=== PATIENT | male | born 1965 | race Caucasian/White ===

== ENCOUNTER 2020-05-06 03:26 | Inpatient (IN) | payer MEDICAID ==
[2020-05-06] MEDS ORDERED: LORAZEPAM INJ 2 MG/1 ML VIAL IV ONE (03:59)
--- NOTE | 2020-05-06 04:01 | ER Document Report ---
ED Dizziness/Weakness - General Chief Complaint: Altered Mental Status Stated Complaint: ALTERED MENTAL STATUS Time Seen by Provider: 05/06/20 03:55 Primary Care Provider: CLEM ALMEIDA MD [Primary Care Provider] - Follow up as needed Mode of Arrival: Medic Information source: Emergency Med Personnel, [facility] Records Notes: Patient is a 54-year-old male who is brought into the emergency room by EMS from [facility]. It was reported that patient had altered mental status. It was reported that patient became verbally abusive and somewhat physically abusive to the staff. The in-house physician was called they gave trazodone 25 mg and called EMS to bring him to the emergency room. According to EMS the trazodone seem to work for short period of time but prior to arrival patient started becoming more combative again. Patient has a past significant history for alcoholic cirrhosis with ascites, chronic anemia, type 2 diabetes mellitus, hypo-magnesium, chronic pain. Acute renal failure. Congestive heart failure and pulmonary hypertension. He also has a history of chronic atrial fibrillation. Patient is unable to give any history himself secondary to his aggression and altered mental status. It is reported by EMS that patient normal demeanor is awake alert and oriented and helping people. It is also been reported that he is on a liver transplant list. TRAVEL OUTSIDE OF THE [place] IN LAST 30 DAYS: No - HPI Patient complains to provider of: Altered mental status Onset: This morning Onset/Duration: Sudden, Gradual Quality of pain: Achy Severity: Severe Pain Level: 4 Associated symptoms: Confused. denies: Diarrhea, Dizzy, Almost fainted, Vomiting Baseline gait: Walks w/o assistance - Related Data Allergies/Adverse Reactions: No Known Allergies Allergy (Verified 05/06/20 07:14) Past Medical History - General Information source: Patient - Social History Smoking Status: Current Every Day Smoker Cigarette use (# per day): Yes Chew tobacco use (# tins/day): No Smoking Education Provided: No Frequency of alcohol use: None Drug Abuse: None Lives with: Intermediate Family History: Reviewed & Not Pertinent - Past Medical History Cardiac Medical History: Reports: Hx Hypercholesterolemia, Hx Hypertension Endocrine Medical History: Reports: Hx Diabetes Mellitus Type 2 GI Medical History: Reports: Hx Gastroesophageal Reflux Disease - Immunizations Immunizations up to date: Yes Hx Diphtheria, Pertussis, Tetanus Vaccination: Yes Review of Systems - Review of Systems Constitutional: Malaise, Weakness EENT: No symptoms reported Cardiovascular: No symptoms reported Respiratory: No symptoms reported Gastrointestinal: No symptoms reported Genitourinary: No symptoms reported Male Genitourinary: No symptoms reported Musculoskeletal: No symptoms reported Skin: No symptoms reported Hematologic/Lymphatic: No symptoms reported Neurological/Psychological: See HPI, Confusion, Anxiety, Hallucinations, W eakness -: Yes All other systems reviewed and negative Physical Exam - Vital signs Vitals: Resp 16 05/06/20 03:35 Interpretation: Other - Patient's vital signs did not crossover yet his heart rate on arrival was 91 respiratory rate of 16-18 saturation was 100% on room air and his blood pressure 161/97. - Notes Notes: PHYSICAL EXAMINATION: GENERAL: Patient is a morbidly obese 54-year-old male who is in moderate amount of distress and very aggressive during physical examination. Patient had to be placed in soft restraints in order to protect the staff. Patient does not respond right now currently to verbal stimulation or commands. He is apparently hallucinating and talking out of the top of his head. HEAD: Atraumatic, normocephalic. EYES: Pupils equal round and reactive to light, extraocular movements intact, sc cheryl anicteric, conjunctiva are normal. ENT: Nares patent, oropharynx clear without exudates. Moist mucous membranes. NECK: Normal range of motion, supple without lymphadenopathy LUNGS: Breath sounds clear to auscultation bilaterally and equal. No wheezes rales or rhonchi. HEART: Regular rate and rhythm without murmurs ABDOMEN: Examination of patient's abdomen shows it to be moderately distended with ascites noted. He has slight discoloration on the umbilicus which is chronic in nature. Bowel sounds are present all 4 quads. Musculoskeletal: Normal range of motion, no pitting or edema. No cyanosis. NEUROLOGICAL: Currently patient is obtunded unable to answer questions and is aggressive. PSYCH: Normal mood, normal affect. Course - Vital Signs Vital signs: Temp Pulse Resp BP Pulse Ox 97.5 F 80 12 126/74 H 100 05/06/20 03:44 05/06/20 04:39 05/06/20 07:01 05/06/20 07:00 05/06/20 07:01 - Laboratory Result Diagrams: 05/06/20 03:20 05/06/20 03:20 Laboratory results interpreted by me: 05/06/20 05/06/20 05/06/20 03:20 03:20 03:20 RBC 2.64 L Hgb 8.4 L Hct 25.4 L RDW 17.5 H Eos % (Auto) 6.9 H Potassium 5.4 H BUN 35 H Creatinine 1.36 H Est GFR (MDRD) Non-Af 55 L Glucose 128 H Direct Bilirubin 0.5 H Ammonia Creatine Kinase 45 L NT-Pro-B Natriuret Pep 2370 H Albumin 3.3 L Urine Ascorbic Acid 05/06/20 05/06/20 04:13 05:13 RBC Hgb Hct RDW Eos % (Auto) Potassium BUN Creatinine Est GFR (MDRD) Non-Af Glucose Direct Bilirubin Ammonia 59.2 H Creatine Kinase NT-Pro-B Natriuret Pep Albumin Urine Ascorbic Acid 20 H Discharge - Discharge Clinical Impression: Encephalopathy acute Altered mental status Qualifiers: Altered mental status type: unspecified Qualified Code(s): R41.82 - Altered mental status, unspecified Disposition: ADMITTED INPATIENT Admitting Provider: Sofia (Hospitalist) Unit Admitted: Telemetry Referrals: CLEM ALMEIDA MD [Primary Care Provider] - Follow up as needed
[2020-05-06 04:36] LABS: ABSOLUTE EOSINOPHILS # (AUTO) 0.3 10^3/uL (0.0-0.6); ABSOLUTE LYMPHOCYTES (AUTO) 1.2 10^3/uL (0.5-4.7); ABSOLUTE MONOCYTES (AUTO) 0.5 10^3/uL (0.1-1.4); ABSOLUTE NEUT (AUTO) 2.5 10^3/uL (1.7-8.2); EOSINOPHILS % (AUTO) 6.9 % (0-6); HEMATOCRIT 25.4 % (37.9-51.0); HEMOGLOBIN 8.4 g/dL (13.5-17.0); MEAN CORPUSCULAR HEMOGLOBIN 31.9 pg (27.0-33.4); MEAN CORPUSCULAR HGB CONC 33.2 g/dL (32.0-36.0); MEAN CORPUSCULAR VOLUME 96 fl (80-97); MONOCYTES % (AUTO) 11.1 % (3-13); PLATELET COUNT 175 10^3/uL (150-450); RED BLOOD COUNT 2.64 10^6/uL (4.35-5.55); RED CELL DISTRIBUTION WIDTH 17.5 % (11.5-14.0); TOTAL CELLS COUNTED % (AUTO) 100 %; WHITE BLOOD COUNT 4.6 10^3/uL (4.0-10.5)
[2020-05-06 04:38] LABS: ALBUMIN 3.3 g/dL (3.5-5.0); ALKALINE PHOSPHATASE 109 U/L (38-126); ANION GAP 8 (5-19); ASPARTATE AMINO TRANSFERASE 32 U/L (17-59); BILIRUBIN,DIRECT 0.5 mg/dL (0.0-0.4); BLOOD UREA NITROGEN 35 mg/dL (7-20); CALCIUM 9.5 mg/dL (8.4-10.2); CARBON DIOXIDE 25 mmol/L (22-30); CHLORIDE 105 mmol/L (98-107); CREATINE KINASE 45 U/L (55-170); GLUCOSE 128 mg/dL (75-110); POTASSIUM 5.4 mmol/L (3.6-5.0); TOTAL PROTEIN 7.5 g/dL (6.3-8.2)
[2020-05-06 04:50] LABS: NT PRO BNP 2370 pg/mL (<125)
[2020-05-06 04:53] LABS: TROPONIN I < 0.012 ng/mL
[2020-05-06 05:31] LABS: APPEARANCE,URINE CLEAR; BILIRUBIN,URINE NEGATIVE (NEGATIVE); COLOR,URINE YELLOW; GLUCOSE, URINE NEGATIVE (NEGATIVE); KETONES,URINE NEGATIVE (NEGATIVE); LEUKOCYTE ESTERASE,URINE NEGATIVE (NEGATIVE); NITRITE,URINE NEGATIVE (NEGATIVE); PROTEIN,URINE NEGATIVE (NEGATIVE); URINE SPECIFIC GRAVITY 1.009; UROBILINOGEN,URINE NEGATIVE mg/dL (<2.0)
--- NOTE | 2020-05-06 06:42 | RADIOLOGY REPORT (SQ) ---
EXAM DESCRIPTION: CT HEAD WITHOUT IV CONTRAST COMPLETED DATE/TME: 05/06/2020 04:03 CLINICAL HISTORY: Altered mental status COMPARISON: None available TECHNIQUE: Axial CT of the head obtained from the skull apex to the skull base without contrast. FINDINGS: No acute intracranial hemorrhage identified. No mass, mass effect, shift of the midline, abnormal extra-axial fluid collection or CT evidence of acute ischemic change identified. The ventricular system and sulcal spaces are mildly enlarged compatible with mild cerebral atrophy. Scattered areas of hypodensity throughout the supratentorial white matter are nonspecific and may be related to chronic small vessel ischemic change. Coastal thickening of the left maxillary sinus. Mastoid air cells are well aerated. No skull fracture identified. Visualized orbits and globes are unremarkable. Atherosclerotic calcification of the intracranial internal carotid arteries. IMPRESSION: 1. No acute intracranial abnormality by CT criteria. This exam was performed according to our departmental dose-optimization program, which includes automated exposure control, adjustment of the mA and/or kV according to patient size and/or use of iterative reconstruction technique.
[2020-05-06] MEDS ORDERED: MAG HYDROX/AL HYDROX/SIMETH SUSP 30 ML UDCUP PO PRN (08:44)
[2020-05-06] MEDS ORDERED: PROMETHAZINE HCL INJ 25 MG/1 ML VIAL IV PRN (08:44)
[2020-05-06] MEDS ORDERED: OXYCODONE HCL IR 5 MG TABLET PO PRN (09:05)
[2020-05-06] MEDS ORDERED: DEXTROSE 50%-WATER 25 GM/50 ML DISP.SYRIN IV PRN ×2 (09:11)
[2020-05-06] MEDS ORDERED: GLUCAGON,HUMAN RECOMB 1 MG INJ IM PRN (09:11)
[2020-05-06] MEDS ORDERED: DEXTROSE 40% GEL 15 GM TUBE PO PRN ×2 (09:11)
--- NOTE | 2020-05-06 09:16 | PDOC H&P ---
<CHATA BAH Dwain - Last Filed: 05/07/20 07:22> History of Present Illness Admission Date/PCP: 05/06/20 08:06 CLEM ALMEIDA MD Past Medical History Cardiac Medical History: Reports: Other Renal/ Medical History: Reports: Other GI Medical History: Reports: Cirrhosis, Other Past Surgical History Past Surgical History: Reports: Other Social History Smoking Status: Former Smoker Electronic Cigarette use?: No Frequency of Alcohol Use: None Hx Recreational Drug Use: No Hx Prescription Drug Abuse: No - Advance Directive Resuscitation Status: Full Code Medication/Allergy Home Medications: Allopurinol [Zyloprim 300 mg Tablet] 300 mg PO QAM 05/06/20 Duloxetine HCl [Cymbalta 30 mg Capsule.dr] 30 mg PO QAM 05/06/20 Fluticasone Propionate [Flonase Nasal [place] 50 Mcg/[place] 16 gm] 1 spray NASL QAM 05/06/20 Furosemide [Lasix 20 mg Tablet] 20 mg PO QAM 05/06/20 Gabapentin [Neurontin 400 mg Capsule] 400 mg PO Q12 05/06/20 Lactulose [Cephulac Syrup 20 gm/30 ml Udcup] 20 gm PO TID 05/06/20 Magnesium Oxide [Mag-Ox 400 mg Tablet] 400 mg PO QAM 05/06/20 Melatonin 10 mg PO QHS 05/06/20 Metoprolol Tartrate [Lopressor 50 mg Tablet] 50 mg PO Q12 05/06/20 Mirtazapine [Remeron] 7.5 mg PO QHS 05/06/20 Multivit,Tx with Iron,Minerals [Thera-M] 1 tab PO QAM 05/06/20 Nystatin/Dexameth/Diphen [Magic Mouthwash] 5 ml PO Q6HP PRN 05/06/20 Omeprazole 20 mg PO Q6AM 05/06/20 Oxycodone HCl [Oxy-Ir 5 mg Tablet] 10 mg PO Q6HP PRN 05/06/20 Rivaroxaban [Xarelto] 20 mg PO QPM 05/06/20 Spironolactone [Aldactone 25 mg Tablet] 25 mg PO QAM 05/06/20 Allergies/Adverse Reactions: No Known Allergies Allergy (Verified 05/06/20 07:14) Physical Exam Vital Signs: Temp Pulse Resp BP Pulse Ox 98.2 F 86 18 124/85 99 05/06/20 07:27 05/06/20 07:30 05/06/20 09:01 05/06/20 09:00 05/06/20 09:01 Intake & Output 05/05/20 05/06/20 05/07/20 06:59 06:59 06:59 Weight 84.8 kg Ear exam: PRESENT: normal external ear exam. ABSENT: bleeding, drainage Neck exam: PRESENT: tracheostomy Gentrourinary exam: ABSENT: indwelling catheter Extremities exam: PRESENT: pedal edema, +1 edema Results Laboratory Results: 05/06/20 03:20 05/06/20 03:20 05/06/20 05/06/20 05/06/20 03:20 03:20 04:13 WBC 4.6 RBC 2.64 L Hgb 8.4 L Hct 25.4 L MCV 96 MCH 31.9 MCHC 33.2 RDW 17.5 H Plt Count 175 Seg Neutrophils % 54.0 Sodium 138.1 Potassium 5.4 H Chloride 105 Carbon Dioxide 25 Anion Gap 8 BUN 35 H Creatinine 1.36 H Est GFR ( Amer) > 60 Glucose 128 H Calcium 9.5 Total Bilirubin 1.0 AST 32 Alkaline Phosphatase 109 Ammonia 59.2 H Total Protein 7.5 Albumin 3.3 L Urine Color Urine Appearance Urine pH Ur Specific [place] Urine Protein Urine Glucose (UA) Urine Ketones Urine Blood Urine Nitrite Ur Leukocyte Esterase Urine WBC (Auto) Urine RBC (Auto) 05/06/20 05:13 WBC RBC Hgb Hct MCV MCH MCHC RDW Plt Count Seg Neutrophils % Sodium Potassium Chloride Carbon Dioxide Anion Gap BUN Creatinine Est GFR ( Amer) Glucose Calcium Total Bilirubin AST Alkaline Phosphatase Ammonia Total Protein Albumin Urine Color YELLOW Urine Appearance CLEAR Urine pH 8.0 Ur Specific [place] 1.009 Urine Protein NEGATIVE Urine Glucose (UA) NEGATIVE Urine Ketones NEGATIVE Urine Blood NEGATIVE Urine Nitrite NEGATIVE Ur Leukocyte Esterase NEGATIVE Urine WBC (Auto) 1 Urine RBC (Auto) 1 05/06/20 05/06/20 03:20 03:20 Creatine Kinase 45 L Troponin I < 0.012 NT-Pro-B Natriuret Pep 2370 H Impressions: Head CT 05/06/20 04:03 IMPRESSION: 1. No acute intracranial abnormality by CT criteria. This exam was performed according to our departmental dose-optimization program, which includes automated exposure control, adjustment of the mA and/or kV according to patient size and/or use of iterative reconstruction technique. Assessment and Plan - Diagnosis (1) Acute hepatic encephalopathy Is this a current diagnosis for this admission?: Yes (2) Alcoholic cirrhosis of liver Qualifiers: Ascites presence: without ascites Qualified Code(s): K70.30 - Alcoholic cirrhosis of liver without ascites Is this a current diagnosis for this admission?: Yes (3) Chronic renal failure, stage 3 (moderate) Is this a current diagnosis for this admission?: Yes (4) Hyperkalemia Is this a current diagnosis for this admission?: Yes (5) Anemia, normocytic normochromic Is this a current diagnosis for this admission?: Yes (6) Hyperglycemia Is this a current diagnosis for this admission?: Yes <LAZARO ANTONIO - Last Filed: 05/07/20 08:06> History of Present Illness Admission Date/PCP: 05/06/20 08:06 CLEM ALMEIDA MD Patient complains of: AMS History of Present Illness: ANURAG MASON is a 54 year old male with past medical history of alcoholic cirrhosis with ascites on transplant list, chronic anemia, type 2 diabetes mellitus, hypo-magnesium, chronic pain, acute renal failure, congestive heart failure, pulmonary hypertension, and chronic A-fib. Patient brought into the ED by EMS for altered mental status and combative behavior. Treated with trazadone 25mg prior to arrival with intermittent improvement. Patient continues to express altered mental status and is unable to provide history. Patient's son called into ED and reports previous history of similar symptoms secondary to elevated ammonia levels. Patient is a resident of [facility]. Patient's medical records were obtained and reviewed. Labs from 04/08/2020 noted Ammonia level of 51.3 kg, his lactulose was increased to 30 mL p.o. 3 times daily at that time. Will order ammonia level today for comparison. Labs in the ED show BUN 35/creatinine 1.49, increased since labs drawn 04/08/2020. He is hyperkalemic. UA negative. CT of the head obtained in the ED showed no acute intracranial hemorrhage, no mass, mass-effect or shift of midline, abnormal extra-axial fluid collection or CT evidence of acute ischemic change. Past Medical History Cardiac Medical History: Reports: Atrial Fibrillation, Congestive Heart Failure, Hyperlipidema, Hypertension, Other - Pulmonary hypertension Neurological Medical History: Reports: Other - Ataxia Endocrine Medical History: Reports: Diabetes Mellitus Type 2 Renal/ Medical History: Reports: Other - Acute renal failure Hyponatremia GI Medical History: Reports: Gastroesophageal Reflux Disease, Other - Hyperbilirubinemia Psychiatric Medical History: Reports: Alcohol Dependency, Tobacco Dependency Hematology: Reports: Anemia Past Surgical History Past Surgical History: Reports: Other - Paracentesis Left toe amputation Social History Information Source: Transfer Record Lives with: [place] Smoking Status: Former Smoker Electronic Cigarette use?: No Frequency of Alcohol Use: None Hx Recreational Drug Use: No Hx Prescription Drug Abuse: No Family History Family History: Other - Unable to obtain due to patient's current mental status Parental Family History Reviewed: No Children Family History Reviewed: No Sibling(s) Family History Reviewed.: No Review of Systems ROS unobtainable: Due to mental status Physical Exam Vital Signs: Temp Pulse Resp BP Pulse Ox 98.2 F 86 12 110/70 100 05/06/20 07:27 05/06/20 07:30 05/06/20 08:01 05/06/20 08:00 05/06/20 08:01 Intake & Output 05/05/20 05/06/20 05/07/20 06:59 06:59 06:59 Weight 84.8 kg Exam: Patient is a frail, chronically ill-appearing male who is in moderate amount of distress. Patient does not respond correctly to commands. Patient is lying in bed with soft wrist restraints. Head exam: PRESENT: atraumatic, normocephalic Eye exam: PRESENT: EOMI, PERRLA. ABSENT: scleral icterus Ear exam: PRESENT: normal external ear exam. ABSENT: bleeding, drainage Mouth exam: PRESENT: moist, neck supple, tongue midline Neck exam: PRESENT: tracheostomy. ABSENT: JVD, lymphadenopathy Respiratory exam: PRESENT: clear to auscultation marcia, symmetrical, unlabored. ABSENT: rales, rhonchi, tachypnea, wheezes Cardiovascular exam: PRESENT: RRR, +S1, +S2. ABSENT: diastolic murmur, systolic murmur, tachycardia GI/Abdominal exam: PRESENT: soft. ABSENT: distended, tenderness Rectal exam: PRESENT: deferred Gentrourinary exam: ABSENT: indwelling catheter Extremities exam: PRESENT: pedal edema, +1 edema Neurological exam: PRESENT: awake. ABSENT: alert, oriented to person, oriented to place, oriented to time, oriented to situation Psychiatric exam: PRESENT: agitated, unusual affect - Secondary to encephalopathy. Skin exam: PRESENT: other - Pigment deposition. Dry scaly skin. Results Laboratory Results: 05/06/20 03:20 05/06/20 03:20 05/06/20 05/06/20 05/06/20 03:20 03:20 04:13 WBC 4.6 RBC 2.64 L Hgb 8.4 L Hct 25.4 L MCV 96 MCH 31.9 MCHC 33.2 RDW 17.5 H Plt Count 175 Seg Neutrophils % 54.0 Sodium 138.1 Potassium 5.4 H Chloride 105 Carbon Dioxide 25 Anion Gap 8 BUN 35 H Creatinine 1.36 H Est GFR ( Amer) > 60 Glucose 128 H Calcium 9.5 Total Bilirubin 1.0 AST 32 Alkaline Phosphatase 109 Ammonia 59.2 H Total Protein 7.5 Albumin 3.3 L Urine Color Urine Appearance Urine pH Ur Specific [place] Urine Protein Urine Glucose (UA) Urine Ketones Urine Blood Urine Nitrite Ur Leukocyte Esterase Urine WBC (Auto) Urine RBC (Auto) 05/06/20 05:13 WBC RBC Hgb Hct MCV MCH MCHC RDW Plt Count Seg Neutrophils % Sodium Potassium Chloride Carbon Dioxide Anion Gap BUN Creatinine Est GFR ( Amer) Glucose Calcium Total Bilirubin AST Alkaline Phosphatase Ammonia Total Protein Albumin Urine Color YELLOW Urine Appearance CLEAR Urine pH 8.0 Ur Specific [place] 1.009 Urine Protein NEGATIVE Urine Glucose (UA) NEGATIVE Urine Ketones NEGATIVE Urine Blood NEGATIVE Urine Nitrite NEGATIVE Ur Leukocyte Esterase NEGATIVE Urine WBC (Auto) 1 Urine RBC (Auto) 1 05/06/20 05/06/20 03:20 03:20 Creatine Kinase 45 L Troponin I < 0.012 NT-Pro-B Natriuret Pep 2370 H Impressions: Head CT 05/06/20 04:03 IMPRESSION: 1. No acute intracranial abnormality by CT criteria. This exam was performed according to our departmental dose-optimization program, which includes automated exposure control, adjustment of the mA and/or kV according to patient size and/or use of iterative reconstruction technique. Assessment and Plan - Diagnosis (1) Acute hepatic encephalopathy Is this a current diagnosis for this admission?: Yes Plan: Patient with known history of cirrhosis on transplant list. Ammonia found to be elevated. Suspect change in mental status secondary to hepatic encephalopathy (2) Alcoholic cirrhosis of liver Qualifiers: Ascites presence: without ascites Qualified Code(s): K70.30 - Alcoholic cirrhosis of liver without ascites Is this a current diagnosis for this admission?: Yes Plan: History of alcohol abuse. Not consuming alcohol at this time. On transplant list. (3) Chronic renal failure, stage 3 (moderate) Is this a current diagnosis for this admission?: Yes Plan: Reviewed previous labs. GFR typically in the 50-55 range. Chronic kidney disease appears stable at this time. (4) Hyperkalemia Is this a current diagnosis for this admission?: Yes Plan: Potassium is mildly elevated. This should resolve with IV fluids. Continue to monitor. (5) Anemia, normocytic normochromic Is this a current diagnosis for this admission?: Yes Plan: Hemoglobin today was 8.4. Old labs were reviewed with previous readings in this range. anemia considered stable at this time. (6) Hyperglycemia Is this a current diagnosis for this admission?: Yes Plan: Patient does not have a history of diabetes mellitus. Likely due to acute illness. Continue to monitor. - Time Time Spent with patient: 15-24 minutes Medications reviewed and adjusted accordingly: Yes Anticipated Discharge Disposition: Penitentiary Facility Anticipated Discharge Timeframe: Unknown. - Inpatient Certification Based on my medical assessment, after consideration of the patient's comorbidities, presenting symptoms, or acuity I expect that the services needed warrant INPATIENT care.: Yes I certify that my determination is in accordance with my understanding of Medicare's requirements for reasonable and necessary INPATIENT services [42 CFR 412.3e].: Yes Medical Necessity: Significant Comorbidiites Make Outpatient Treatment Too Risky, Need For IV Fluids, Risk of Complication if Not Cared For in Hospital Post Hospital Care: D/C or Transfer Summary
[2020-05-06] MEDS ORDERED: MULTIVITAMINS W-IRON TABLET, CHEWABLE PO SCH (10:00)
[2020-05-06] MEDS: MAGNESIUM OXIDE 400 MG TABLET PO SCH (10:55)
[2020-05-06] MEDS: LACTULOSE SYRUP 20 GM/30 ML UDCUP PO SCH ×3 (10:55→18:01)
[2020-05-06] MEDS: METOPROLOL TARTRATE 50 MG TABLET PO SCH ×2 (10:55→21:39)
[2020-05-06] MEDS: DULOXETINE HCL 30 MG CAPSULE.DR PO SCH ×2 (10:55→21:36)
[2020-05-06] MEDS: ALLOPURINOL 300 MG TABLET PO SCH (10:55)
[2020-05-06] MEDS: GABAPENTIN 400 MG CAPSULE PO SCH ×2 (10:55→21:34)
[2020-05-06] MEDS: OXYCODONE HCL IR 5 MG TABLET PO SCH ×3 (10:55→21:34)
[2020-05-06] MEDS: MULTIVITAMIN TABLET PO SCH (10:55)
[2020-05-06] MEDS: INSULIN REG, HUMAN 100 UNIT/ML 3 ML VIAL (PYX) SUBCUT SCH ×2 (11:14→16:21)
[2020-05-06] MEDS: NORMAL SALINE 1000 ML 1,000 ML IV PRN (11:24)
[2020-05-06] MEDS: FLUTICASONE NASAL SPRAY 50 MCG/SPRY 120 SPRAY/16 GM NASL SCH (11:48)
--- NOTE | 2020-05-06 12:59 | EKG REPORT ---
SEVERITY:- BORDERLINE ECG - SINUS RHYTHM PROBABLE LEFT ATRIAL ABNORMALITY BORDERLINE LEFT AXIS DEVIATION : Confirmed by: Manuel Barrios MD 06-May-2020 12:58:47
[2020-05-06] MEDS: RIVAROXABAN 10 MG TABLET PO SCH (18:01)
[2020-05-06] MEDS: PANTOT AC/MIN OIL/PET HY-PHL OINT 50 GM TOP SCH (18:03)
[2020-05-06] MEDS: MIRTAZAPINE 15 MG TABLET PO SCH (21:34)
[2020-05-06] MEDS: MELATONIN 5 MG TABLET PO SCH (21:36)
[2020-05-07] MEDS: OXYCODONE HCL IR 5 MG TABLET PO SCH ×4 (02:24→22:21)
[2020-05-07] MEDS: NORMAL SALINE 1000 ML 1,000 ML IV PRN ×2 (03:19→22:00)
[2020-05-07 05:15] LABS: HEMATOCRIT 23.3 % (37.9-51.0); MEAN CORPUSCULAR HEMOGLOBIN 31.9 pg (27.0-33.4); MEAN CORPUSCULAR HGB CONC 33.6 g/dL (32.0-36.0); MEAN CORPUSCULAR VOLUME 95 fl (80-97); PLATELET COUNT 175 10^3/uL (150-450); RED BLOOD COUNT 2.45 10^6/uL (4.35-5.55); RED CELL DISTRIBUTION WIDTH 17.1 % (11.5-14.0); WHITE BLOOD COUNT 4.2 10^3/uL (4.0-10.5)
[2020-05-07 05:18] LABS: HEMOGLOBIN 7.8 g/dL (13.5-17.0)
[2020-05-07 05:25] LABS: INTERNATIONAL RATION (INR) 2.59; PROTHROMBIN TIME 27.7 SEC (11.4-15.4)
[2020-05-07] MEDS: PANTOPRAZOLE SODIUM 20 MG TABLET.DR PO SCH (05:29)
[2020-05-07 05:32] LABS: ANION GAP 8 (5-19); BLOOD UREA NITROGEN 26 mg/dL (7-20); CALCIUM 9.1 mg/dL (8.4-10.2); CARBON DIOXIDE 20 mmol/L (22-30); CHLORIDE 110 mmol/L (98-107); GLUCOSE 89 mg/dL (75-110); PHOSPHORUS 5.7 mg/dL (2.5-4.5); POTASSIUM 4.8 mmol/L (3.6-5.0)
[2020-05-07] MEDS: INSULIN REG, HUMAN 100 UNIT/ML 3 ML VIAL (PYX) SUBCUT SCH ×3 (07:56→18:05)
[2020-05-07] MEDS: MAGNESIUM OXIDE 400 MG TABLET PO SCH (09:02)
[2020-05-07] MEDS: METOPROLOL TARTRATE 50 MG TABLET PO SCH ×2 (09:02→22:23)
[2020-05-07] MEDS: LACTULOSE SYRUP 20 GM/30 ML UDCUP PO SCH ×3 (09:02→18:54)
[2020-05-07] MEDS: DULOXETINE HCL 30 MG CAPSULE.DR PO SCH ×2 (09:02→22:23)
[2020-05-07] MEDS: GABAPENTIN 400 MG CAPSULE PO SCH ×2 (09:02→22:22)
[2020-05-07] MEDS: MULTIVITAMIN TABLET PO SCH (09:03)
[2020-05-07] MEDS: FLUTICASONE NASAL SPRAY 50 MCG/SPRY 120 SPRAY/16 GM NASL SCH (09:03)
[2020-05-07] MEDS: PANTOT AC/MIN OIL/PET HY-PHL OINT 50 GM TOP SCH ×2 (09:03→20:08)
[2020-05-07] MEDS: SPIRONOLACTONE 25 MG TABLET PO SCH (09:05)
[2020-05-07] MEDS: FUROSEMIDE 20 MG TABLET PO SCH (09:06)
[2020-05-07] MEDS: ALLOPURINOL 300 MG TABLET PO SCH (10:57)
[2020-05-07] MEDS: RIVAROXABAN 10 MG TABLET PO SCH (18:54)
[2020-05-07] MEDS: MIRTAZAPINE 15 MG TABLET PO SCH (22:22)
[2020-05-07] MEDS: MELATONIN 5 MG TABLET PO SCH (22:23)
[2020-05-08] MEDS: OXYCODONE HCL IR 5 MG TABLET PO SCH ×3 (04:00→15:25)
[2020-05-08] MEDS: PANTOPRAZOLE SODIUM 20 MG TABLET.DR PO SCH (05:36)
[2020-05-08] MEDS: INSULIN REG, HUMAN 100 UNIT/ML 3 ML VIAL (PYX) SUBCUT SCH ×3 (07:33→18:26)
--- NOTE | 2020-05-08 08:21 | PDOC PROGRESS REPORT ---
Subjective Progress Note for:: 05/07/20 Subjective:: Patient is resting comfortably in the bed. He is alert and able to communicate. significant improvement in patient compared to yesterday. He has been compliant with his lactulose p.o. Ammonia levels continue to be elevated. No other concerns or complaints at this time. Reason For Visit: HEPATIC ENCEPHALOPATHY,HYPERKALEMIA,DEHYDRATION, Physical Exam Vital Signs: Temp Pulse Resp BP Pulse Ox 99.0 F 88 16 116/64 97 05/07/20 20:01 05/07/20 20:01 05/07/20 20:01 05/07/20 20:01 05/07/20 20:01 Intake & Output 05/07/20 05/08/20 05/09/20 06:59 06:59 06:59 Intake Total 1000 2131 1000 Output Total 2475 3600 Balance -1475 -1469 1000 Weight 84.8 kg 84.8 kg General appearance: PRESENT: no acute distress, cooperative Head exam: PRESENT: atraumatic, normocephalic Eye exam: PRESENT: EOMI, PERRLA Ear exam: PRESENT: normal external ear exam. ABSENT: bleeding, drainage Mouth exam: PRESENT: moist, tongue midline Neck exam: ABSENT: JVD, lymphadenopathy, tenderness Respiratory exam: PRESENT: clear to auscultation marcia, symmetrical, unlabored Cardiovascular exam: PRESENT: RRR, +S1, +S2. ABSENT: diastolic murmur, systolic murmur GI/Abdominal exam: PRESENT: soft. ABSENT: ascites, rebound, tenderness Rectal exam: PRESENT: deferred Gentrourinary exam: PRESENT: indwelling catheter Extremities exam: ABSENT: pedal edema, tenderness Musculoskeletal exam: PRESENT: ambulatory Neurological exam: PRESENT: alert, awake, oriented to person, oriented to place, oriented to time, oriented to situation, CN II-XII grossly intact Psychiatric exam: PRESENT: appropriate affect. ABSENT: agitated Skin exam: PRESENT: other - Pigment deposition. dry skin scaly skin Results Laboratory Results: 05/07/20 05:00 05/07/20 05:00 05/08/20 04:29 Ammonia 67.6 H 05/06/20 05/06/20 03:20 03:20 Creatine Kinase 45 L Troponin I < 0.012 NT-Pro-B Natriuret Pep 2370 H Impressions: Head CT 05/06/20 04:03 IMPRESSION: 1. No acute intracranial abnormality by CT criteria. This exam was performed according to our departmental dose-optimization program, which includes automated exposure control, adjustment of the mA and/or kV according to patient size and/or use of iterative reconstruction technique. Assessment and Plan - Diagnosis (1) Acute hepatic encephalopathy Is this a current diagnosis for this admission?: Yes Plan: Patient with known history of cirrhosis on transplant list. Significant improvement inpatient status. Ammonia levels continue to be elevated. Investigate increasing lactulose dose Continue to monitor ammonia levels closely (2) Alcoholic cirrhosis of liver Qualifiers: Ascites presence: without ascites Qualified Code(s): K70.30 - Alcoholic cirrhosis of liver without ascites Is this a current diagnosis for this admission?: Yes Plan: History of alcohol abuse. Not consuming alcohol at this time. On transplant list. (3) Chronic renal failure, stage 3 (moderate) Is this a current diagnosis for this admission?: Yes Plan: Reviewed previous labs. GFR typically in the 50-55 range. Chronic kidney disease continues to be stable at this time. (4) Anemia, normocytic normochromic Is this a current diagnosis for this admission?: Yes Plan: Hemoglobin continues to be in typical range. anemia considered stable at this time. (5) Hyperglycemia Is this a current diagnosis for this admission?: Yes Plan: Patient does not have a history of diabetes mellitus. Likely due to acute illness. Continue to monitor. (6) Hyperkalemia Is this a current diagnosis for this admission?: Yes Plan: Hyperkalemia has resolved with IV fluids Continue to monitor. - Time Time Spent with patient: 15-24 minutes Anticipated Discharge Disposition: Senior Living Facility Anticipated Discharge Timeframe: within 24 hours
[2020-05-08] MEDS: ALLOPURINOL 300 MG TABLET PO SCH (09:38)
[2020-05-08] MEDS: FUROSEMIDE 20 MG TABLET PO SCH (09:38)
[2020-05-08] MEDS: SPIRONOLACTONE 25 MG TABLET PO SCH (09:38)
[2020-05-08] MEDS: GABAPENTIN 400 MG CAPSULE PO SCH (09:39)
[2020-05-08] MEDS: MAGNESIUM OXIDE 400 MG TABLET PO SCH (09:39)
[2020-05-08] MEDS: METOPROLOL TARTRATE 50 MG TABLET PO SCH (09:39)
[2020-05-08] MEDS: DULOXETINE HCL 30 MG CAPSULE.DR PO SCH (09:39)
[2020-05-08] MEDS: MULTIVITAMIN TABLET PO SCH (09:40)
[2020-05-08] MEDS: LACTULOSE SYRUP 20 GM/30 ML UDCUP PO SCH ×3 (09:40→18:14)
[2020-05-08] MEDS: FLUTICASONE NASAL SPRAY 50 MCG/SPRY 120 SPRAY/16 GM NASL SCH (10:04)
[2020-05-08] MEDS: PANTOT AC/MIN OIL/PET HY-PHL OINT 50 GM TOP SCH ×2 (10:28→18:16)
[2020-05-08] MEDS ORDERED: NORMAL SALINE 250 ML IV PRN ×2 (12:21)
--- NOTE | 2020-05-08 13:37 | PDOC TRANSFER SUMMARY ---
<CHATA BAH - Last Filed: 05/08/20 13:51> Impression - Admit/DC Date/PCP Admission Date/Primary Care Provider: 05/06/20 08:06 CLEM ALMEIDA MD - Discharge Diagnosis (1) Acute hepatic encephalopathy Is this a current diagnosis for this admission?: Yes (2) Alcoholic cirrhosis of liver Is this a current diagnosis for this admission?: Yes (3) Chronic renal failure, stage 3 (moderate) Is this a current diagnosis for this admission?: Yes (4) Hyperkalemia Is this a current diagnosis for this admission?: Yes (5) Anemia, normocytic normochromic Is this a current diagnosis for this admission?: Yes (6) Hyperglycemia Is this a current diagnosis for this admission?: Yes - Additional Information Referrals: [facility] [Outside] CLEM ALMEIDA MD [Primary Care Provider] - Follow up as needed Home Medications: Allopurinol [Zyloprim 300 mg Tablet] 300 mg PO QAM 05/06/20 Duloxetine HCl [Cymbalta 30 mg Capsule.dr] 30 mg PO QAM 05/06/20 Fluticasone Propionate [Flonase Nasal [place] 50 Mcg/[place] 16 gm] 1 spray NASL QAM 05/06/20 Furosemide [Lasix 20 mg Tablet] 20 mg PO QAM 05/06/20 Gabapentin [Neurontin 400 mg Capsule] 400 mg PO Q12 05/06/20 Lactulose [Cephulac Syrup 20 gm/30 ml Udcup] 20 gm PO TID 05/06/20 Magnesium Oxide [Mag-Ox 400 mg Tablet] 400 mg PO QAM 05/06/20 Melatonin 10 mg PO QHS 05/06/20 Metoprolol Tartrate [Lopressor 50 mg Tablet] 50 mg PO Q12 05/06/20 Mirtazapine [Remeron] 7.5 mg PO QHS 05/06/20 Multivit,Tx with Iron,Minerals [Thera-M] 1 tab PO QAM 05/06/20 Nystatin/Dexameth/Diphen [Magic Mouthwash] 5 ml PO Q6HP PRN 05/06/20 Omeprazole 20 mg PO Q6AM 05/06/20 Oxycodone HCl [Oxy-Ir 5 mg Tablet] 10 mg PO Q6HP PRN 05/06/20 Rivaroxaban [Xarelto] 20 mg PO QPM 05/06/20 Spironolactone [Aldactone 25 mg Tablet] 25 mg PO QAM 05/06/20 Allopurinol [Zyloprim 300 mg Tablet] 300 mg PO DAILY tablet 05/08/20 Duloxetine HCl [Cymbalta 30 mg Capsule.] 30 mg PO Q12 capsule. 05/08/20 Fluticasone Propionate [Flonase Nasal [place] 50 Mcg/[place] 16 gm] 1 spray NASL DAILY spray.pump 05/08/20 Furosemide [Lasix 20 mg Tablet] 20 mg PO DAILY tablet 05/08/20 Gabapentin [Neurontin 400 mg Capsule] 400 mg PO Q12 capsule 05/08/20 Lactulose [Cephulac Syrup 20 gm/30 ml Udcup] 20 gm PO QID udc 05/08/20 Magnesium Oxide [Mag-Ox 400 mg Tablet] 400 mg PO DAILY tablet 05/08/20 Melatonin [Melatonin 5 mg Tablet] 10 mg PO QHS tablet 05/08/20 Metoprolol Tartrate [Lopressor 50 mg Tablet] 50 mg PO Q12 tablet 05/08/20 Mirtazapine [Remeron 15 mg Tablet] 7.5 mg PO QHS tablet 05/08/20 Multivitamin [Tab-A-Naveed (Multiple Vitamin) Tablet] 1 tab PO DAILY tablet 05/08/20 Oxycodone HCl [Oxy-Ir 5 mg Tablet] 5 mg PO Q4HP PRN tablet 05/08/20 Oxycodone HCl [Oxy-Ir 5 mg Tablet] 5 mg PO Q6H tablet 05/08/20 Pantoprazole Sodium [Protonix [address] Tablet] 20 mg PO Q6AM tablet. 05/08/20 Pantot AC/Min Oil/Pet Hy-Phl [Aquaphor W-Dulce Heal Oint 50 gm] 1 applic TOP BID tube 05/08/20 Rivaroxaban [Xarelto 10 mg Tablet] 20 mg PO WSUPPER tablet 05/08/20 Spironolactone [Aldactone 25 mg Tablet] 25 mg PO DAILY tablet 05/08/20 History of Present Illiness History of Present Illness: ANURAG MASON is a 54 year old male Hospital Course Hospital Course: Patient is a 54-year-old male with history of alcoholic cirrhosis of the liver, chronic renal failure stage III, and normocytic normochromic anemia who was [facility] for acute hepatic encephalopathy. Patient had unremarkable hospital course. Acute hepatic encephalopathy was treated with lactulose, patient returned to baseline on 05/07/2020, though ammonia levels continued to be elevated. Patient's hgb was 7.8L on 05/07/2020, treated with 1 unit packed red blood cells on 05/08/3030. Creatinine GFR and BUN have normalized. Hyperkalemia has resolved. Hyperglycemia resolved. Patient is stable stable for discharge to [facility]. Physical Exam Vital Signs: Temp Pulse Resp BP Pulse Ox 98.1 F 72 16 116/68 99 05/08/20 11:14 05/08/20 11:14 05/08/20 11:14 05/08/20 11:14 05/08/20 11:14 Intake & Output 05/07/20 05/08/20 05/09/20 06:59 06:59 06:59 Intake Total 1000 2131 1000 Output Total 2475 3600 Balance -1475 -1469 1000 Weight 84.8 kg 84.8 kg Results Laboratory Results: WBC 4.2 10^3/uL (4.0-10.5) 05/07/20 05:00 RBC 2.45 10^6/uL (4.35-5.55) L 05/07/20 05:00 Hgb 7.8 g/dL (13.5-17.0) L 05/07/20 05:00 Hct 23.3 % (37.9-51.0) L 05/07/20 05:00 MCV 95 fl (80-97) 05/07/20 05:00 MCH 31.9 pg (27.0-33.4) 05/07/20 05:00 MCHC 33.6 g/dL (32.0-36.0) 05/07/20 05:00 RDW 17.1 % (11.5-14.0) H 05/07/20 05:00 Plt Count 175 10^3/uL (150-450) 05/07/20 05:00 Lymph % (Auto) 27.0 % (13-45) 05/06/20 03:20 Roberts % (Auto) 11.1 % (3-13) 05/06/20 03:20 Eos % (Auto) 6.9 % (0-6) H 05/06/20 03:20 Baso % (Auto) 1.0 % (0-2) 05/06/20 03:20 Absolute Neuts (auto) 2.5 10^3/uL (1.7-8.2) 05/06/20 03:20 Absolute Lymphs (auto) 1.2 10^3/uL (0.5-4.7) 05/06/20 03:20 Absolute Monos (auto) 0.5 10^3/uL (0.1-1.4) 05/06/20 03:20 Absolute Eos (auto) 0.3 10^3/uL (0.0-0.6) 05/06/20 03:20 Absolute Basos (auto) 0.0 10^3/uL (0.0-0.2) 05/06/20 03:20 Seg Neutrophils % 54.0 % (42-78) 05/06/20 03:20 PT 27.7 SEC (11.4-15.4) H 05/07/20 05:00 INR 2.59 05/07/20 05:00 Sodium 138.0 mmol/L (137-145) 05/07/20 05:00 Potassium 4.8 mmol/L (3.6-5.0) 05/07/20 05:00 Chloride 110 mmol/L (98-107) H 05/07/20 05:00 Carbon Dioxide 20 mmol/L (22-30) L 05/07/20 05:00 Anion Gap 8 (5-19) 05/07/20 05:00 BUN 26 mg/dL (7-20) H 05/07/20 05:00 Creatinine 1.06 mg/dL (0.52-1.25) 05/07/20 05:00 Est GFR ( Amer) > 60 (>60) 05/07/20 05:00 Est GFR (MDRD) Non-Af > 60 (>60) 05/07/20 05:00 Glucose 89 mg/dL (75-110) 05/07/20 05:00 POC Glucose 124 mg/dL (70-110) H 05/08/20 11:15 Calcium 9.1 mg/dL (8.4-10.2) 05/07/20 05:00 Phosphorus 5.7 mg/dL (2.5-4.5) H 05/07/20 05:00 Magnesium 2.2 mg/dL (1.6-2.3) 05/07/20 05:00 Total Bilirubin 1.0 mg/dL (0.2-1.3) 05/06/20 03:20 Direct Bilirubin 0.5 mg/dL (0.0-0.4) H 05/06/20 03:20 Neonat Total Bilirubin Not Reportable 05/06/20 03:20 Neonat Direct Bilirubin Not Reportable 05/06/20 03:20 Neonat Indirect Bili Not Reportable 05/06/20 03:20 AST 32 U/L (17-59) 05/06/20 03:20 ALT 13 U/L (<50) 05/06/20 03:20 Alkaline Phosphatase 109 U/L (38-126) 05/06/20 03:20 Ammonia 67.6 umol/L (9-33) H 05/08/20 04:29 Creatine Kinase 45 U/L (55-170) L 05/06/20 03:20 Troponin I < 0.012 ng/mL 05/06/20 03:20 NT-Pro-B Natriuret Pep 2370 pg/mL (<125) H 05/06/20 03:20 Total Protein 7.5 g/dL (6.3-8.2) 05/06/20 03:20 Albumin 3.3 g/dL (3.5-5.0) L 05/06/20 03:20 Urine Color YELLOW 05/06/20 05:13 Urine Appearance CLEAR 05/06/20 05:13 Urine pH 8.0 (5.0-9.0) 05/06/20 05:13 Ur Specific Barry 1.009 05/06/20 05:13 Urine Protein NEGATIVE mg/dL (NEGATIVE) 05/06/20 05:13 Urine Glucose (UA) NEGATIVE mg/dL (NEGATIVE) 05/06/20 05:13 Urine Ketones NEGATIVE mg/dL (NEGATIVE) 05/06/20 05:13 Urine Blood NEGATIVE (NEGATIVE) 05/06/20 05:13 Urine Nitrite NEGATIVE (NEGATIVE) 05/06/20 05:13 Urine Bilirubin NEGATIVE (NEGATIVE) 05/06/20 05:13 Urine Urobilinogen NEGATIVE mg/dL (<2.0) 05/06/20 05:13 Ur Leukocyte Esterase NEGATIVE (NEGATIVE) 05/06/20 05:13 Urine WBC (Auto) 1 /HPF 05/06/20 05:13 Urine RBC (Auto) 1 /HPF 05/06/20 05:13 Urine Mucus (Auto) RARE /LPF 05/06/20 05:13 Urine Ascorbic Acid 20 (NEGATIVE) H 05/06/20 05:13 Crossmatch See Detail 05/08/20 12:58 05/06/20 03:20 Troponin I < 0.012 NT-Pro-B Natriuret Pep 2370 H Impressions: Head CT 05/06/20 04:03 IMPRESSION: 1. No acute intracranial abnormality by CT criteria. This exam was performed according to our departmental dose-optimization program, which includes automated exposure control, adjustment of the mA and/or kV according to patient size and/or use of iterative reconstruction technique. Plan Health Concerns: Patient with cirrhosis. Currently on transplant list for liver. Plan of Treatment: The patient's hemoglobin was less than 8 today. He is going to receive 1 unit of packed red blood cells and then discharge patient back to [facility]. His lactulose was increased to 4 times a day. Please draw follow-up ammonia in 4 days Please have the facility provider recheck labs regarding kidney function, anemia and ammonia level. Goals: Stabilization of ammonia level. Improved hemoglobin and improved renal function. Eventual goal is successful liver transplant. Stroke Is this a Stroke Patient?: No Acute Heart Failure - Is this a Heart Failure Patient?: No <LAZARO ANTONIO - Last Filed: 05/08/20 13:55> Impression - Admit/DC Date/PCP Admission Date/Primary Care Provider: 05/06/20 08:06 CLEM ALMEIDA MD Discharge Date: 05/08/20 - Discharge Diagnosis (1) Acute hepatic encephalopathy Is this a current diagnosis for this admission?: Yes (2) Alcoholic cirrhosis of liver Is this a current diagnosis for this admission?: Yes (3) Anemia, normocytic normochromic Is this a current diagnosis for this admission?: Yes (4) Chronic renal failure, stage 3 (moderate) Is this a current diagnosis for this admission?: Yes (5) Hyperglycemia Is this a current diagnosis for this admission?: Yes (6) Hyperkalemia Is this a current diagnosis for this admission?: Yes - Additional Information Resuscitation Status: Full Code Discharge Diet: Regular Discharge Activity: Activity As Tolerated History of Present Illiness History of Present Illness: ANURAG MASON is a 54 year old male with past medical history of alcoholic cirrhosis with ascites on transplant list, chronic anemia, type 2 diabetes mellitus, hypo-magnesium, chronic pain, acute renal failure, congestive heart failure, pulmonary hypertension, and chronic A-fib. Patient brought into the ED by EMS for altered mental status and combative beh avior. Treated with trazadone 25mg prior to arrival with intermittent improvement. Patient continues to express altered mental status and is unable to provide history. Patient's son called into ED and reports previous history of similar symptoms secondary to elevated ammonia levels. Patient is a resident of [facility]. Patient's medical records were obtained and reviewed. Labs from 04/08/2020 noted Ammonia level of 51.3 kg, his lactulose was increased to 30 mL p.o. 3 times daily at that time. Will order ammonia level today for comparison. Labs in the ED show BUN 35/creati nine 1.49, increased since labs drawn 04/08/2020. He is hyperkalemic. UA negative. CT of the head obtained in the ED showed no acute intracranial hemorrhage, no mass, mass-effect or shift of midline, abnormal extra-axial fluid collection or CT evidence of acute ischemic change. Physical Exam Vital Signs: Temp Pulse Resp BP Pulse Ox 98.1 F 72 16 116/68 99 05/08/20 11:14 05/08/20 11:14 05/08/20 11:14 05/08/20 11:14 05/08/20 11:14 Intake & Output 05/07/20 05/08/20 05/09/20 06:59 06:59 06:59 Intake Total 1000 2131 1000 Output Total 2475 3600 Balance -1475 -1469 1000 Weight 84.8 kg 84.8 kg General appearance: PRESENT: no acute distress, cooperative Eye exam: PRESENT: EOMI, PERRLA. ABSENT: scleral icterus Ear exam: PRESENT: normal external ear exam. ABSENT: bleeding, drainage Mouth exam: PRESENT: moist, tongue midline Neck exam: ABSENT: JVD, lymphadenopathy, tenderness Respiratory exam: PRESENT: clear to auscultation marcia, symmetrical, unlabored. ABSENT: rales, rhonchi Cardiovascular exam: PRESENT: RRR, +S1, +S2. ABSENT: diastolic murmur, systolic murmur GI/Abdominal exam: PRESENT: soft. ABSENT: distended, firm, guarding, tenderness Rectal exam: PRESENT: deferred Gentrourinary exam: PRESENT: indwelling catheter Extremities exam: ABSENT: pedal edema, tenderness Musculoskeletal exam: PRESENT: ambulatory, full ROM Neurological exam: PRESENT: alert, awake, oriented to person, oriented to place, oriented to time, CN II-XII grossly intact Psychiatric exam: PRESENT: appropriate affect Skin exam: PRESENT: other - Pigment deposition. Dry skin, scaly skin Results Laboratory Results: WBC 4.2 10^3/uL (4.0-10.5) 05/07/20 05:00 RBC 2.45 10^6/uL (4.35-5.55) L 05/07/20 05:00 Hgb 7.8 g/dL (13.5-17.0) L 05/07/20 05:00 Hct 23.3 % (37.9-51.0) L 05/07/20 05:00 MCV 95 fl (80-97) 05/07/20 05:00 MCH 31.9 pg (27.0-33.4) 05/07/20 05:00 MCHC 33.6 g/dL (32.0-36.0) 05/07/20 05:00 RDW 17.1 % (11.5-14.0) H 05/07/20 05:00 Plt Count 175 10^3/uL (150-450) 05/07/20 05:00 Lymph % (Auto) 27.0 % (13-45) 05/06/20 03:20 Roberts % (Auto) 11.1 % (3-13) 05/06/20 03:20 Eos % (Auto) 6.9 % (0-6) H 05/06/20 03:20 Baso % (Auto) 1.0 % (0-2) 05/06/20 03:20 Absolute Neuts (auto) 2.5 10^3/uL (1.7-8.2) 05/06/20 03:20 Absolute Lymphs (auto) 1.2 10^3/uL (0.5-4.7) 05/06/20 03:20 Absolute Monos (auto) 0.5 10^3/uL (0.1-1.4) 05/06/20 03:20 Absolute Eos (auto) 0.3 10^3/uL (0.0-0.6) 05/06/20 03:20 Absolute Basos (auto) 0.0 10^3/uL (0.0-0.2) 05/06/20 03:20 Seg Neutrophils % 54.0 % (42-78) 05/06/20 03:20 PT 27.7 SEC (11.4-15.4) H 05/07/20 05:00 INR 2.59 05/07/20 05:00 Sodium 138.0 mmol/L (137-145) 05/07/20 05:00 Potassium 4.8 mmol/L (3.6-5.0) 05/07/20 05:00 Chloride 110 mmol/L (98-107) H 05/07/20 05:00 Carbon Dioxide 20 mmol/L (22-30) L 05/07/20 05:00 Anion Gap 8 (5-19) 05/07/20 05:00 BUN 26 mg/dL (7-20) H 05/07/20 05:00 Creatinine 1.06 mg/dL (0.52-1.25) 05/07/20 05:00 Est GFR ( Amer) > 60 (>60) 05/07/20 05:00 Est GFR (MDRD) Non-Af > 60 (>60) 05/07/20 05:00 Glucose 89 mg/dL (75-110) 05/07/20 05:00 POC Glucose 124 mg/dL (70-110) H 05/08/20 11:15 Calcium 9.1 mg/dL (8.4-10.2) 05/07/20 05:00 Phosphorus 5.7 mg/dL (2.5-4.5) H 05/07/20 05:00 Magnesium 2.2 mg/dL (1.6-2.3) 05/07/20 05:00 Total Bilirubin 1.0 mg/dL (0.2-1.3) 05/06/20 03:20 Direct Bilirubin 0.5 mg/dL (0.0-0.4) H 05/06/20 03:20 Neonat Total Bilirubin Not Reportable 05/06/20 03:20 Neonat Direct Bilirubin Not Reportable 05/06/20 03:20 Neonat Indirect Bili Not Reportable 05/06/20 03:20 AST 32 U/L (17-59) 05/06/20 03:20 ALT 13 U/L (<50) 05/06/20 03:20 Alkaline Phosphatase 109 U/L (38-126) 05/06/20 03:20 Ammonia 67.6 umol/L (9-33) H 05/08/20 04:29 Creatine Kinase 45 U/L (55-170) L 05/06/20 03:20 Troponin I < 0.012 ng/mL 05/06/20 03:20 NT-Pro-B Natriuret Pep 2370 pg/mL (<125) H 05/06/20 03:20 Total Protein 7.5 g/dL (6.3-8.2) 05/06/20 03:20 Albumin 3.3 g/dL (3.5-5.0) L 05/06/20 03:20 Urine Color YELLOW 05/06/20 05:13 Urine Appearance CLEAR 05/06/20 05:13 Urine pH 8.0 (5.0-9.0) 05/06/20 05:13 Ur Specific Barry 1.009 05/06/20 05:13 Urine Protein NEGATIVE mg/dL (NEGATIVE) 05/06/20 05:13 Urine Glucose (UA) NEGATIVE mg/dL (NEGATIVE) 05/06/20 05:13 Urine Ketones NEGATIVE mg/dL (NEGATIVE) 05/06/20 05:13 Urine Blood NEGATIVE (NEGATIVE) 05/06/20 05:13 Urine Nitrite NEGATIVE (NEGATIVE) 05/06/20 05:13 Urine Bilirubin NEGATIVE (NEGATIVE) 05/06/20 05:13 Urine Urobilinogen NEGATIVE mg/dL (<2.0) 05/06/20 05:13 Ur Leukocyte Esterase NEGATIVE (NEGATIVE) 05/06/20 05:13 Urine WBC (Auto) 1 /HPF 05/06/20 05:13 Urine RBC (Auto) 1 /HPF 05/06/20 05:13 Urine Mucus (Auto) RARE /LPF 05/06/20 05:13 Urine Ascorbic Acid 20 (NEGATIVE) H 05/06/20 05:13 05/06/20 03:20 Troponin I < 0.012 NT-Pro-B Natriuret Pep 2370 H Impressions: Head CT 05/06/20 04:03 IMPRESSION: 1. No acute intracranial abnormality by CT criteria. This exam was performed according to our departmental dose-optimization program, which includes automated exposure control, adjustment of the mA and/or kV according to patient size and/or use of iterative reconstruction technique. Plan Time Spent: Greater than 30 Minutes Stroke Is this a Stroke Patient?: No Acute Heart Failure - Is this a Heart Failure Patient?: No
[2020-05-08 13:49] LABS: MEAN CORPUSCULAR HEMOGLOBIN 31.7 pg (27.0-33.4); MEAN CORPUSCULAR HGB CONC 33.3 g/dL (32.0-36.0); MEAN CORPUSCULAR VOLUME 95 fl (80-97); PLATELET COUNT 154 10^3/uL (150-450); RED BLOOD COUNT 2.41 10^6/uL (4.35-5.55); RED CELL DISTRIBUTION WIDTH 16.9 % (11.5-14.0); WHITE BLOOD COUNT 3.7 10^3/uL (4.0-10.5)
[2020-05-08 13:53] LABS: HEMOGLOBIN 7.7 g/dL (13.5-17.0)
[2020-05-08 18:13] VITALS: BP 122/71
[2020-05-08] MEDS: RIVAROXABAN 10 MG TABLET PO SCH (18:15)
== END 2020-05-08 19:37 | DRG 442 ==
LOC: ER 03:26 → EH 08:06 → 4W 12:47
PROVIDERS: ADMIT Hospitalist; ATTEND Hospitalist
PROC: 30233N1 Transfusion of Nonautologous Red Blood Cells into Peripheral Vein, Percutaneous Approach (ICD-10-PCS; principal; 2020-05-08)
DX: K72.00 Acute and subacute hepatic failure without coma (principal); N17.9 Acute kidney failure, unspecified; I13.0 Hypertensive heart and chronic kidney disease with heart failure and stage 1 through stage 4 chronic kidney disease, or unspecified chronic kidney disease; I48.20 Chronic atrial fibrillation, unspecified; I27.20 Pulmonary hypertension, unspecified; D63.1 Anemia in chronic kidney disease; E11.22 Type 2 diabetes mellitus with diabetic chronic kidney disease; N18.3 Chronic kidney disease, stage 3 (moderate); I50.9 Heart failure, unspecified; E87.5 Hyperkalemia; K70.30 Alcoholic cirrhosis of liver without ascites; E11.65 Type 2 diabetes mellitus with hyperglycemia; G89.29 Other chronic pain; E83.42 Hypomagnesemia; E78.5 Hyperlipidemia, unspecified; K21.9 Gastro-esophageal reflux disease without esophagitis; F10.21 Alcohol dependence, in remission; Z79.899 Other long term (current) drug therapy; Z87.891 Personal history of nicotine dependence; Z89.422 Acquired absence of other left toe(s); Z78.1 Physical restraint status
CPT/HCPCS: 36415; 36430; 70450; 80048; 80053; 81001; 82140; 82550; 82962; 83735; 83880; 84100; 84484; 85025; 85027; 85610; 86850; 86900; 86901; 86920; 93005; 93010; 96374; 99285; J1815; J2060; J3490; J7030; P9016

== ENCOUNTER 2020-05-13 02:19 | Inpatient (IN) | payer MEDICAID ==
--- NOTE | 2020-05-13 02:46 | ER Document Report ---
ED General - General Chief Complaint: Altered Mental Status Stated Complaint: AMS Time Seen by Provider: 05/13/20 02:32 Mode of Arrival: Stretcher Information source: Emergency Med Personnel, [facility] Records Cannot obtain history due to: Altered mental status TRAVEL OUTSIDE OF THE [place] IN LAST 30 DAYS: No - HPI Notes: Patient is a 54-year-old male with a history of alcoholic cirrhosis with ascities who was brought in by EMS from [facility]. Per EMS, patient was naked, combative with multiple skin tear that were bleeding. He was reported to be "playing in his blood". Per prior records, patient was admitted on 05/06/20 for hepatic encephalopathy and was discharged two days later. Patient has a hx of CHF, pulmonary hypertension, chronic anemia, DM II, hypomagnesium, and chronic pain. - Related Data Allergies/Adverse Reactions: No Known Allergies Allergy (Verified 05/06/20 07:14) Past Medical History - General Cannot obtain history due to: Altered mental status - Social History Smoking Status: Unknown if Ever Smoked Family History: Other - Unable to obtain due to patient's current mental status - Past Medical History Cardiac Medical History: Reports: Hx Atrial Fibrillation, Hx Congestive Heart Failure, Hx Hypercholesterolemia, Hx Hypertension Endocrine Medical History: Reports: Hx Diabetes Mellitus Type 2 GI Medical History: Reports: Hx Cirrhosis, Hx Gastroesophageal Reflux Disease Psychiatric Medical History: Denies: Hx Depression Past Surgical History: Reports: Other - Paracentesis Left toe amputation - Immunizations Immunizations up to date: Yes Hx Diphtheria, Pertussis, Tetanus Vaccination: Yes Review of Systems - Review of Systems -: Yes ROS unobtainable due to patient's medical condition Physical Exam - Vital signs Vitals: Resp Pulse Ox 13 99 05/13/20 02:52 05/13/20 02:52 - Notes Notes: PHYSICAL EXAMINATION: VITALS: Vitals reviewed and within normal limits. GENERAL: Well-appearing, well-nourished and in no acute distress. HEAD: Atraumatic, normocephalic. EYES: Pupils equal round and reactive to light, extraocular movements intact, sclera anicteric, conjunctiva are normal. ENT: nares patent, oropharynx clear without exudates. Moist mucous membranes. NECK: Normal range of motion, supple without lymphadenopathy. LUNGS: Breath sounds clear to auscultation bilaterally and equal. No wheezes rales or rhonchi. HEART: Regular rate and rhythm without murmurs. ABDOMEN: Moderately distended with ascites noted. He has slight discoloration on the umbilicus which is chronic in nature. Normoactive bowel sounds. No guarding, no rebound. EXTREMITIES: Edema to BLE with excoriations . Palpable DP and PT pulses. NEUROLOGICAL: Patient only oriented to person. Speech is clear but doesn't make sense at times. Moving all extremities. CN II-XII grossly intact. PSYCH: Normal mood, normal affect. SKIN: Warm and dry. Skin tears to RUE: right elbow 5cm and right lateral distal forearm 3cm. Not actively bleeding. Course - Re-evaluation Re-evalutation: Patient is a 54-year-old male with a history of alcoholic cirrhosis. He was brought in by EMS from [facility] for altered mental status as he was combative, naked and covered in blood from skin tears on his arms. On exam, patient is only oriented to person and his speech does not make sense. Skin tears to RUE cleaned and dressed. Hemoglobin of 8.2 but patient has a hx of chronic anemia with prior HGB of 7.7. Ammonia elevated at 60.4 consistent with hepatic encephalopathy; Lactulose 20mg PO started. Discussed patient with Dr. Martinez, hospitalist, and he will accept patient for a full admission to the medical floor. He recommended a larger dose of lactulose. A second dose of lactulose 20mg PO ordered. Head CT 05/13/20 03:26 IMPRESSION: No acute intracranial findings. Chest X-Ray 05/13/20 03:28 IMPRESSION: Congestive change. - Vital Signs Vital signs: Temp Pulse Resp BP Pulse Ox 97.9 F 85 12 121/62 100 05/13/20 05:14 05/13/20 03:01 05/13/20 07:01 05/13/20 07:00 05/13/20 07:01 - Laboratory Result Diagrams: 05/13/20 03:42 05/13/20 03:42 Laboratory results interpreted by me: 05/13/20 05/13/20 05/13/20 03:42 03:42 03:42 RBC 2.55 L Hgb 8.2 L Hct 24.1 L RDW 17.0 H Eos % (Auto) 6.8 H BUN 28 H Glucose 131 H Ammonia Albumin 3.4 L Urine Blood SMALL H 05/13/20 04:10 RBC Hgb Hct RDW Eos % (Auto) BUN Glucose Ammonia 60.4 H Albumin Urine Blood - EKG Interpretation by Me Additional EKG results interpreted by me: Sinus rhythm with a rate of 74. QTc 484. Borderline left axis deviation. ST depression in lead II, but minimal ST depression in contiguous leads. No T wave inversion. Unchanged from previous EKG on 05/06/2020. Discharge - Discharge Clinical Impression: Acute hepatic encephalopathy Alcoholic cirrhosis of liver Qualifiers: Ascites presence: with ascites Qualified Code(s): K70.31 - Alcoholic cirrhosis of liver with ascites Altered mental status Qualifiers: Altered mental status type: unspecified Qualified Code(s): R41.82 - Altered mental status, unspecified Condition: Stable Disposition: ADMITTED INPATIENT Admitting Provider: Michelle (Hospitalist) Unit Admitted: Medical Floor
[2020-05-13 04:01] LABS: APPEARANCE,URINE CLEAR; BILIRUBIN,URINE NEGATIVE (NEGATIVE); COLOR,URINE STRAW; GLUCOSE, URINE NEGATIVE (NEGATIVE); KETONES,URINE NEGATIVE (NEGATIVE); LEUKOCYTE ESTERASE,URINE NEGATIVE (NEGATIVE); NITRITE,URINE NEGATIVE (NEGATIVE); PROTEIN,URINE NEGATIVE (NEGATIVE); URINE SPECIFIC GRAVITY 1.003; UROBILINOGEN,URINE NEGATIVE mg/dL (<2.0)
[2020-05-13 04:05] LABS: ABSOLUTE EOSINOPHILS # (AUTO) 0.3 10^3/uL (0.0-0.6); ABSOLUTE LYMPHOCYTES (AUTO) 1.1 10^3/uL (0.5-4.7); ABSOLUTE MONOCYTES (AUTO) 0.3 10^3/uL (0.1-1.4); ABSOLUTE NEUT (AUTO) 2.6 10^3/uL (1.7-8.2); EOSINOPHILS % (AUTO) 6.8 % (0-6); HEMATOCRIT 24.1 % (37.9-51.0); HEMOGLOBIN 8.2 g/dL (13.5-17.0); LYMPHOCYTES % (AUTO) 24.4 % (13-45); MEAN CORPUSCULAR HEMOGLOBIN 32.2 pg (27.0-33.4); MEAN CORPUSCULAR HGB CONC 33.9 g/dL (32.0-36.0); MEAN CORPUSCULAR VOLUME 95 fl (80-97); PLATELET COUNT 164 10^3/uL (150-450); RED BLOOD COUNT 2.55 10^6/uL (4.35-5.55); SEGMENTED NEUTROPHILS % (AUTO) 59.8 % (42-78); TOTAL CELLS COUNTED % (AUTO) 100 %; WHITE BLOOD COUNT 4.4 10^3/uL (4.0-10.5)
[2020-05-13 04:12] LABS: ALBUMIN 3.4 g/dL (3.5-5.0); ALKALINE PHOSPHATASE 92 U/L (38-126); ANION GAP 9 (5-19); ASPARTATE AMINO TRANSFERASE 29 U/L (17-59); BILIRUBIN,DIRECT 0.4 mg/dL (0.0-0.4); BILIRUBIN,TOTAL 1.1 mg/dL (0.2-1.3); BLOOD UREA NITROGEN 28 mg/dL (7-20); CALCIUM 9.4 mg/dL (8.4-10.2); CARBON DIOXIDE 24 mmol/L (22-30); CHLORIDE 104 mmol/L (98-107); GLUCOSE 131 mg/dL (75-110); POTASSIUM 4.8 mmol/L (3.6-5.0); TOTAL PROTEIN 7.4 g/dL (6.3-8.2)
[2020-05-13 04:14] LABS: ALCOHOL < 10 mg/dL (NONE DETECTED)
[2020-05-13 04:17] LABS: URINE AMPHETAMINES SCREEN NEGATIVE; URINE BARBITURATES SCREEN NEGATIVE; URINE BENZODIAZEPINES SCREEN NEGATIVE; URINE COCAINE SCREEN NEGATIVE; URINE MARIJUANA (THC) SCREEN NEGATIVE; URINE METHADONE SCREEN NEGATIVE; URINE PHENCYCLIDINE SCREEN NEGATIVE
--- NOTE | 2020-05-13 04:39 | RADIOLOGY REPORT (SQ) ---
CLINICAL INDICATION: altered mental status. TECHNIQUE: A single portable AP view was obtained of the chest at 0415 hours. COMPARISON: None. FINDINGS: The cardiomediastinal silhouette is prominent. The lungs demonstrate congestive change. Small effusions. No pneumothorax. Old posttraumatic change. IMPRESSION: Congestive change.
--- NOTE | 2020-05-13 05:39 | RADIOLOGY REPORT (SQ) ---
CLINICAL HISTORY: altered mental status COMPARISON: 05/06/2020. TECHNIQUE: CT HEAD WITHOUT IV CONTRAST on 05/13/2020 3:26 AM CDT This exam was performed according to our departmental dose-optimization program, which includes automated exposure control, adjustment of the mA and/or kV according to patient size and/or use of iterative reconstruction technique. FINDINGS: There is no acute hemorrhage, mass effect or midline shift. Mims-white differentiation is preserved. There is no hydrocephalus. There is no significant volume loss for age. The calvarium is intact. Orbits and globes are unremarkable. The paranasal sinuses are clear. Mastoid air cells are clear. IMPRESSION: No acute intracranial findings.
[2020-05-13] MEDS ORDERED: LACTULOSE SYRUP 20 GM/30 ML UDCUP PO ONE ×2 (05:47→06:37)
[2020-05-13] MEDS ORDERED: ONDANSETRON 4 MG TAB.RAPDIS PO PRN (08:46)
[2020-05-13] MEDS ORDERED: IPRATROPIUM/ALBUTEROL 0.5-2.5 MG/3 ML AMPUL NEB PRN (08:46)
--- NOTE | 2020-05-13 08:51 | EKG REPORT ---
SEVERITY:- BORDERLINE ECG - SINUS RHYTHM BORDERLINE LEFT AXIS DEVIATION BORDERLINE ST DEPRESSION, DIFFUSE LEADS BORDERLINE PROLONGED QT INTERVAL : Confirmed by: Hunter Denny MD 13-May-2020 08:50:41
--- NOTE | 2020-05-13 09:26 | PDOC H&P ---
History of Present Illness Admission Date/PCP: 05/13/20 06:58 CLEM ALMEIDA MD Patient complains of: Patient presents to the emergency room with complaints of change in mental status. History of Present Illness: ANURAG MASON is a 54 year old male He was just discharged to [place] on May. He apparently was found naked and combative with multiple skin tears that were bleeding. It was felt that patient may have an acute encephalopathy again from his cirrhosis of the liver and so he was brought to the emergency room. In the emergency room his ammonia level is found to be elevated at 60 although it was 67.6 during his last admission. Patient was given 20 g of lactulose and we awaiting results from that. He is anemic however this is chronic. His hemoglobin is actually better than it was when he was discharged just a few days ago. Patient is actually somewhat uncooperative and was unable to provide much information to me Past Medical History Cardiac Medical History: Reports: Atrial Fibrillation, Congestive Heart Failure, Hyperlipidema, Hypertension Endocrine Medical History: Reports: Diabetes Mellitus Type 2 GI Medical History: Reports: Cirrhosis, Gastroesophageal Reflux Disease Psychiatric Medical History: Denies: Depression Hematology: Reports: Anemia Past Surgical History Past Surgical History: Reports: Other - Paracentesis Left toe amputation Social History Information Source: [facility] Records Smoking Status: Unknown if Ever Smoked Frequency of Alcohol Use: None Hx Recreational Drug Use: No Hx Prescription Drug Abuse: No - Advance Directive Resuscitation Status: Full Code Family History Family History: Other - Unable to obtain due to patient's current mental status Parental Family History Reviewed: No Children Family History Reviewed: No Sibling(s) Family History Reviewed.: No - Unable to obtain Medication/Allergy Home Medications: Allopurinol [Zyloprim 300 mg Tablet] 300 mg PO QAM 05/06/20 Duloxetine HCl [Cymbalta 30 mg Capsule.dr] 30 mg PO QAM 05/06/20 Fluticasone Propionate [Flonase Nasal [place] 50 Mcg/[place] 16 gm] 1 spray NASL QAM 05/06/20 Furosemide [Lasix 20 mg Tablet] 20 mg PO QAM 05/06/20 Gabapentin [Neurontin 400 mg Capsule] 400 mg PO Q12 05/06/20 Lactulose [Cephulac Syrup 20 gm/30 ml Udcup] 20 gm PO TID 05/06/20 Magnesium Oxide [Mag-Ox 400 mg Tablet] 400 mg PO QAM 05/06/20 Melatonin 10 mg PO QHS 05/06/20 Metoprolol Tartrate [Lopressor 50 mg Tablet] 50 mg PO Q12 05/06/20 Mirtazapine [Remeron] 7.5 mg PO QHS 05/06/20 Multivit,Tx with Iron,Minerals [Thera-M] 1 tab PO QAM 05/06/20 Nystatin/Dexameth/Diphen [Magic Mouthwash] 5 ml PO Q6HP PRN 05/06/20 Omeprazole 20 mg PO Q6AM 05/06/20 Oxycodone HCl [Oxy-Ir 5 mg Tablet] 10 mg PO Q6HP PRN 05/06/20 Rivaroxaban [Xarelto] 20 mg PO QPM 05/06/20 Spironolactone [Aldactone 25 mg Tablet] 25 mg PO QAM 05/06/20 Allopurinol [Zyloprim 300 mg Tablet] 300 mg PO DAILY tablet 05/08/20 Duloxetine HCl [Cymbalta 30 mg Capsule.] 30 mg PO Q12 capsule.dr 05/08/20 Fluticasone Propionate [Flonase Nasal [place] 50 Mcg/[place] 16 gm] 1 spray NASL DAILY spray.pump 05/08/20 Furosemide [Lasix 20 mg Tablet] 20 mg PO DAILY tablet 05/08/20 Gabapentin [Neurontin 400 mg Capsule] 400 mg PO Q12 capsule 05/08/20 Lactulose 20 gm PO QID PRN #32 oz 05/08/20 Lactulose [Cephulac Syrup 20 gm/30 ml Udcup] 20 gm PO QID udc 05/08/20 Magnesium Oxide [Mag-Ox 400 mg Tablet] 400 mg PO DAILY tablet 05/08/20 Melatonin [Melatonin 5 mg Tablet] 10 mg PO QHS tablet 05/08/20 Metoprolol Tartrate [Lopressor 50 mg Tablet] 50 mg PO Q12 tablet 05/08/20 Mirtazapine [Remeron 15 mg Tablet] 7.5 mg PO QHS tablet 05/08/20 Multivitamin [Tab-A-Naveed (Multiple Vitamin) Tablet] 1 tab PO DAILY tablet 05/08/20 Oxycodone HCl [Oxy-Ir 5 mg Tablet] 5 mg PO Q4HP PRN tablet 05/08/20 Oxycodone HCl [Oxy-Ir 5 mg Tablet] 5 mg PO Q6H tablet 05/08/20 Oxycodone HCl [Oxy-Ir 5 mg Tablet] 5 mg PO Q6HP PRN #15 tab 05/08/20 Pantoprazole Sodium [Protonix [address] Tablet] 20 mg PO Q6AM tablet. 05/08/20 Pantot AC/Min Oil/Pet Hy-Phl [Aquaphor W-Dulce Heal Oint 50 gm] 1 applic TOP BID tube 05/08/20 Rivaroxaban [Xarelto 10 mg Tablet] 20 mg PO WSUPPER tablet 05/08/20 Spironolactone [Aldactone 25 mg Tablet] 25 mg PO DAILY tablet 05/08/20 Allergies/Adverse Reactions: No Known Allergies Allergy (Verified 05/13/20 08:22) Review of Systems ROS unobtainable: Due to mental status Physical Exam Vital Signs: Temp Pulse Resp BP Pulse Ox 97.9 F 74 13 102/51 L 100 05/13/20 05:14 05/13/20 06:00 05/13/20 08:01 05/13/20 08:00 05/13/20 08:01 Intake & Output 05/12/20 05/13/20 05/14/20 06:59 06:59 06:59 Weight 84 kg General appearance: PRESENT: no acute distress. ABSENT: cooperative Head exam: PRESENT: atraumatic Mouth exam: PRESENT: dry mucosa Respiratory exam: PRESENT: clear to auscultation marcia, unlabored Cardiovascular exam: PRESENT: RRR, +S1, +S2 GI/Abdominal exam: PRESENT: distended, firm, hernia, normal bowel sounds Rectal exam: PRESENT: deferred Neurological exam: PRESENT: awake, other - unable to fully evaluate as patient was uncooperative Focused psych exam: ABSENT: restlessness Results Laboratory Results: 05/13/20 03:42 05/13/20 03:42 05/13/20 05/13/20 05/13/20 03:42 03:42 03:42 WBC 4.4 RBC 2.55 L Hgb 8.2 L Hct 24.1 L MCV 95 MCH 32.2 MCHC 33.9 RDW 17.0 H Plt Count 164 Seg Neutrophils % 59.8 Sodium 137.1 Potassium 4.8 Chloride 104 Carbon Dioxide 24 Anion Gap 9 BUN 28 H Creatinine 1.19 Est GFR ( Amer) > 60 Glucose 131 H Calcium 9.4 Total Bilirubin 1.1 AST 29 Alkaline Phosphatase 92 Ammonia Total Protein 7.4 Albumin 3.4 L Urine Color STRAW Urine Appearance CLEAR Urine pH 7.0 Ur Specific [place] 1.003 Urine Protein NEGATIVE Urine Glucose (UA) NEGATIVE Urine Ketones NEGATIVE Urine Blood SMALL H Urine Nitrite NEGATIVE Ur Leukocyte Esterase NEGATIVE Urine WBC (Auto) 0 Urine RBC (Auto) 0 05/13/20 04:10 WBC RBC Hgb Hct MCV MCH MCHC RDW Plt Count Seg Neutrophils % Sodium Potassium Chloride Carbon Dioxide Anion Gap BUN Creatinine Est GFR ( Amer) Glucose Calcium Total Bilirubin AST Alkaline Phosphatase Ammonia 60.4 H Total Protein Albumin Urine Color Urine Appearance Urine pH Ur Specific [place] Urine Protein Urine Glucose (UA) Urine Ketones Urine Blood Urine Nitrite Ur Leukocyte Esterase Urine WBC (Auto) Urine RBC (Auto) 05/13/20 03:42 Troponin I < 0.012 Impressions: Head CT 05/13/20 03:26 IMPRESSION: No acute intracranial findings. Chest X-Ray 05/13/20 03:28 IMPRESSION: Congestive change. Assessment and Plan - Diagnosis (1) Acute hepatic encephalopathy Is this a current diagnosis for this admission?: Yes Plan: We will treat with lactulose and monitor ammonia as appropriate (2) Alcoholic cirrhosis of liver Qualifiers: Ascites presence: with ascites Qualified Code(s): K70.31 - Alcoholic cirrhosis of liver with ascites Is this a current diagnosis for this admission?: Yes Plan: This appears to be relatively stable. No evidence of any other acute complications (3) Altered mental status Qualifiers: Altered mental status type: unspecified Qualified Code(s): R41.82 - Altered mental status, unspecified Is this a current diagnosis for this admission?: Yes Plan: #2 hepatic encephalopathy (4) Chronic anemia Is this a current diagnosis for this admission?: Yes Plan: Hemoglobin is pretty stable and there is no need for any acute transfusion at this time. - Time Time Spent with patient: 15-24 minutes Medications reviewed and adjusted accordingly: Yes Anticipated Discharge Disposition[facility] Anticipated Discharge Timeframe: within 48 hours - Inpatient Certification Based on my medical assessment, after consideration of the patient's comor bidities, presenting symptoms, or acuity I expect that the services needed warrant INPATIENT care.: Yes Medical Necessity: Significant Comorbidiites Make Outpatient Treatment Too Risky, Risk of Complication if Not Cared For in Hospital
[2020-05-13] MEDS: DOCUSATE SODIUM 100 MG CAPSULE PO SCH ×2 (10:47→18:24)
[2020-05-13] MEDS: FAMOTIDINE 20 MG TABLET PO SCH ×2 (10:47→22:24)
[2020-05-13] MEDS: ENOXAPARIN SODIUM INJ 40 MG/0.4 ML DISP.SYRIN SUBCUT SCH (10:49)
[2020-05-13] MEDS: NORMAL SALINE 1000 ML 1,000 ML IV PRN (10:49)
[2020-05-13] MEDS: LACTULOSE SYRUP 20 GM/30 ML UDCUP PO SCH ×2 (13:15→18:22)
[2020-05-14] MEDS: LACTULOSE SYRUP 20 GM/30 ML UDCUP PO SCH ×4 (00:29→17:03)
[2020-05-14 05:53] LABS: ABSOLUTE EOSINOPHILS # (AUTO) 0.2 10^3/uL (0.0-0.6); ABSOLUTE LYMPHOCYTES (AUTO) 1.2 10^3/uL (0.5-4.7); ABSOLUTE MONOCYTES (AUTO) 0.4 10^3/uL (0.1-1.4); ABSOLUTE NEUT (AUTO) 2.9 10^3/uL (1.7-8.2); BASOPHILS % (AUTO) 0.8 % (0-2); EOSINOPHILS % (AUTO) 4.1 % (0-6); MEAN CORPUSCULAR HEMOGLOBIN 32.3 pg (27.0-33.4); MEAN CORPUSCULAR HGB CONC 34.2 g/dL (32.0-36.0); MEAN CORPUSCULAR VOLUME 94 fl (80-97); MONOCYTES % (AUTO) 8.2 % (3-13); PLATELET COUNT 157 10^3/uL (150-450); RED BLOOD COUNT 2.33 10^6/uL (4.35-5.55); RED CELL DISTRIBUTION WIDTH 16.3 % (11.5-14.0); SEGMENTED NEUTROPHILS % (AUTO) 61.9 % (42-78); TOTAL CELLS COUNTED % (AUTO) 100 %; WHITE BLOOD COUNT 4.7 10^3/uL (4.0-10.5)
[2020-05-14 05:55] LABS: HEMOGLOBIN 7.5 g/dL (13.5-17.0)
[2020-05-14 06:09] LABS: ANION GAP 7 (5-19); BLOOD UREA NITROGEN 21 mg/dL (7-20); CALCIUM 9.1 mg/dL (8.4-10.2); CARBON DIOXIDE 20 mmol/L (22-30); CHLORIDE 113 mmol/L (98-107); GLUCOSE 100 mg/dL (75-110); POTASSIUM 4.1 mmol/L (3.6-5.0)
[2020-05-14] MEDS ORDERED: FUROSEMIDE INJ/PF 40 MG/4 ML SDV IV ONE (09:21)
[2020-05-14] MEDS: FAMOTIDINE 20 MG TABLET PO SCH ×2 (10:34→22:03)
[2020-05-14] MEDS: DOCUSATE SODIUM 100 MG CAPSULE PO SCH ×2 (10:34→17:02)
[2020-05-14] MEDS: ENOXAPARIN SODIUM INJ 40 MG/0.4 ML DISP.SYRIN SUBCUT SCH (10:35)
[2020-05-14] MEDS: OXYCODONE HCL IR 5 MG TABLET PO PRN ×2 (14:52→22:04)
--- NOTE | 2020-05-14 16:25 | PDOC PROGRESS REPORT ---
Subjective Progress Note for:: 05/14/20 Subjective:: Patient appears to be improved today. He is a little bit more cooperative. Nursing staff indicate that he has had 1 large bowel movement so far this morning. Reason For Visit: HEPATIC ENCEPHALOPATHY Physical Exam Vital Signs: Temp Pulse Resp BP Pulse Ox 98.8 F 98 16 124/85 100 05/14/20 12:00 05/14/20 12:00 05/14/20 12:00 05/14/20 12:00 05/14/20 12:00 Intake & Output 05/13/20 05/14/20 05/15/20 06:59 06:59 06:59 Intake Total 320 350 Output Total 870 Balance -550 350 Weight 84 kg General appearance: PRESENT: no acute distress Head exam: PRESENT: atraumatic Eye exam: PRESENT: EOMI Respiratory exam: PRESENT: clear to auscultation marcia, unlabored Cardiovascular exam: PRESENT: RRR, +S1, +S2 GI/Abdominal exam: PRESENT: ascites, distended, firm Rectal exam: PRESENT: deferred Neurological exam: PRESENT: alert, awake Psychiatric exam: PRESENT: appropriate affect Results Laboratory Results: 05/14/20 05:32 05/14/20 05:32 05/14/20 05/14/20 05/14/20 05:32 05:32 05:32 WBC 4.7 RBC 2.33 L Hgb 7.5 L Hct 22.0 L MCV 94 MCH 32.3 MCHC 34.2 RDW 16.3 H Plt Count 157 Seg Neutrophils % 61.9 Sodium 140.4 Potassium 4.1 Chloride 113 H Carbon Dioxide 20 L Anion Gap 7 BUN 21 H Creatinine 1.04 Est GFR ( Amer) > 60 Glucose 100 Calcium 9.1 Ammonia 52.3 H 05/13/20 05/13/20 03:42 03:42 Troponin I < 0.012 NT-Pro-B Natriuret Pep 1040 H Impressions: Head CT 05/13/20 03:26 IMPRESSION: No acute intracranial findings. Chest X-Ray 05/13/20 03:28 IMPRESSION: Congestive change. Assessment and Plan - Diagnosis (1) Acute hepatic encephalopathy Is this a current diagnosis for this admission?: Yes Plan: Continue lactulose and monitor ammonia as appropriate (2) Alcoholic cirrhosis of liver Qualifiers: Ascites presence: with ascites Qualified Code(s): K70.31 - Alcoholic c irrhosis of liver with ascites Is this a current diagnosis for this admission?: Yes Plan: Will check US for possible paracentesis (3) Altered mental status Qualifiers: Altered mental status type: unspecified Qualified Code(s): R41.82 - Altered mental status, unspecified Is this a current diagnosis for this admission?: Yes Plan: #2 hepatic encephalopathy, this is improved (4) Chronic anemia Is this a current diagnosis for this admission?: Yes Plan: Hemoglobin is trending down but this is in line with his baseline. Will continue to monitor - Time Time Spent with patient: 15-24 minutes Medications reviewed and adjusted accordingly: Yes Anticipated Discharge Disposition: Group Home Facility Anticipated Discharge Timeframe: within 48 hours
[2020-05-14 17:19] LABS: INTERNATIONAL RATION (INR) 1.67; PROTHROMBIN TIME 19.8 SEC (11.4-15.4)
[2020-05-14 17:20] LABS: PARTIAL THROMBOPLASTIN TIME 49.3 SEC (23.5-35.8)
[2020-05-15] MEDS: LACTULOSE SYRUP 20 GM/30 ML UDCUP PO SCH ×5 (00:04→23:39)
[2020-05-15 06:16] LABS: ABSOLUTE BASOPHILS # (AUTO) 0.1 10^3/uL (0.0-0.2); ABSOLUTE EOSINOPHILS # (AUTO) 0.3 10^3/uL (0.0-0.6); ABSOLUTE LYMPHOCYTES (AUTO) 1.4 10^3/uL (0.5-4.7); ABSOLUTE MONOCYTES (AUTO) 0.5 10^3/uL (0.1-1.4); ABSOLUTE NEUT (AUTO) 3.6 10^3/uL (1.7-8.2); BASOPHILS % (AUTO) 0.9 % (0-2); EOSINOPHILS % (AUTO) 5.6 % (0-6); HEMATOCRIT 19.5 % (37.9-51.0); INTERNATIONAL RATION (INR) 1.51; LYMPHOCYTES % (AUTO) 23.7 % (13-45); MEAN CORPUSCULAR HGB CONC 33.7 g/dL (32.0-36.0); MEAN CORPUSCULAR VOLUME 95 fl (80-97); MONOCYTES % (AUTO) 8.3 % (3-13); PLATELET COUNT 158 10^3/uL (150-450); PROTHROMBIN TIME 18.3 SEC (11.4-15.4); RED BLOOD COUNT 2.05 10^6/uL (4.35-5.55); RED CELL DISTRIBUTION WIDTH 16.3 % (11.5-14.0); SEGMENTED NEUTROPHILS % (AUTO) 61.5 % (42-78); TOTAL CELLS COUNTED % (AUTO) 100 %; WHITE BLOOD COUNT 5.8 10^3/uL (4.0-10.5)
[2020-05-15 06:22] LABS: ALBUMIN 2.6 g/dL (3.5-5.0); ALKALINE PHOSPHATASE 68 U/L (38-126); ANION GAP 5 (5-19); ASPARTATE AMINO TRANSFERASE 25 U/L (17-59); BILIRUBIN,DIRECT 0.4 mg/dL (0.0-0.4); BILIRUBIN,TOTAL 1.1 mg/dL (0.2-1.3); BLOOD UREA NITROGEN 31 mg/dL (7-20); CALCIUM 8.4 mg/dL (8.4-10.2); CARBON DIOXIDE 22 mmol/L (22-30); CHLORIDE 107 mmol/L (98-107); GLUCOSE 129 mg/dL (75-110); POTASSIUM 3.9 mmol/L (3.6-5.0); TOTAL PROTEIN 6.3 g/dL (6.3-8.2)
[2020-05-15 06:25] LABS: HEMOGLOBIN 6.6 g/dL (13.5-17.0)
[2020-05-15] MEDS ORDERED: DIPHENHYDRAMINE HCL 50 MG/ML VIAL IV PRN (06:37)
[2020-05-15] MEDS: ENOXAPARIN SODIUM INJ 40 MG/0.4 ML DISP.SYRIN SUBCUT SCH (10:44)
[2020-05-15] MEDS: DOCUSATE SODIUM 100 MG CAPSULE PO SCH ×2 (10:44→17:34)
[2020-05-15] MEDS: OXYCODONE HCL IR 5 MG TABLET PO PRN ×3 (10:49→23:39)
[2020-05-15] MEDS: FAMOTIDINE 20 MG TABLET PO SCH ×2 (10:50→23:39)
--- NOTE | 2020-05-15 13:50 | RADIOLOGY REPORT (SQ) ---
EXAM DESCRIPTION: U/S ABDOMEN LIMITED W/O DOP IMAGES COMPLETED DATE/TIME: 05/15/2020 1:32 pm REASON FOR STUDY: Ascites, Cirrhosis COMPARISON: None. TECHNIQUE: Limited Static and real time razo scale imaging performed of the 4 abdominal quadrants an d the midline. LIMITATIONS: None. FINDINGS: ASCITES: Mild ascites. Insufficient window for safe paracentesis. OTHER: No other significant finding. IMPRESSION: Insufficient window for safe paracentesis. TECHNICAL DOCUMENTATION: JOB ID: [id number] 2010 [facility] [place]- All Rights Reserved Reading location - IP/workstation name: [email or web address]
[2020-05-15 16:34] LABS: ABSOLUTE BASOPHILS # (AUTO) 0.1 10^3/uL (0.0-0.2); ABSOLUTE EOSINOPHILS # (AUTO) 0.1 10^3/uL (0.0-0.6); ABSOLUTE LYMPHOCYTES (AUTO) 1.3 10^3/uL (0.5-4.7); ABSOLUTE MONOCYTES (AUTO) 0.5 10^3/uL (0.1-1.4); ABSOLUTE NEUT (AUTO) 4.6 10^3/uL (1.7-8.2); BASOPHILS % (AUTO) 0.8 % (0-2); EOSINOPHILS % (AUTO) 2.1 % (0-6); LYMPHOCYTES % (AUTO) 20.1 % (13-45); MEAN CORPUSCULAR HGB CONC 34.4 g/dL (32.0-36.0); MEAN CORPUSCULAR VOLUME 93 fl (80-97); MONOCYTES % (AUTO) 7.2 % (3-13); PLATELET COUNT 164 10^3/uL (150-450); RED BLOOD COUNT 2.15 10^6/uL (4.35-5.55); SEGMENTED NEUTROPHILS % (AUTO) 69.8 % (42-78); TOTAL CELLS COUNTED % (AUTO) 100 %; WHITE BLOOD COUNT 6.6 10^3/uL (4.0-10.5)
[2020-05-15 16:37] LABS: HEMOGLOBIN 6.9 g/dL (13.5-17.0)
[2020-05-15] MEDS ORDERED: NORMAL SALINE 250 ML IV PRN ×2 (16:50)
--- NOTE | 2020-05-15 17:10 | PDOC PROGRESS REPORT ---
Subjective Progress Note for:: 05/15/20 Subjective:: Patient appears to be improved today. More awake and alert today and able to converse though still confused Reason For Visit: HEPATIC ENCEPHALOPATHY Physical Exam Vital Signs: Temp Pulse Resp BP Pulse Ox 99.5 F 100 18 155/75 H 100 05/15/20 16:00 05/15/20 16:00 05/15/20 16:00 05/15/20 16:00 05/15/20 16:00 Intake & Output 05/14/20 05/15/20 05/16/20 06:59 06:59 06:59 Intake Total 320 2230 350 Output Total 870 450 Balance -550 1780 350 Weight 84 kg 84 kg General appearance: PRESENT: no acute distress, other - pale looking Eye exam: PRESENT: conjunctiva pale Respiratory exam: PRESENT: clear to auscultation marcia, unlabored Cardiovascular exam: PRESENT: RRR, +S1, +S2 GI/Abdominal exam: PRESENT: distended, guarding, normal bowel sounds Rectal exam: PRESENT: deferred Neurological exam: PRESENT: alert, awake, oriented to place. ABSENT: motor sensory deficit Results Laboratory Results: 05/15/20 16:22 05/15/20 05:30 05/15/20 05/15/20 05/15/20 05:30 05:30 05:30 WBC 5.8 RBC 2.05 L Hgb 6.6 L Hct 19.5 L MCV 95 MCH 32.0 MCHC 33.7 RDW 16.3 H Plt Count 158 Seg Neutrophils % 61.5 Sodium 134.4 L Potassium 3.9 Chloride 107 Carbon Dioxide 22 Anion Gap 5 BUN 31 H Creatinine 0.90 Est GFR ( Amer) > 60 Glucose 129 H Calcium 8.4 Total Bilirubin 1.1 AST 25 Alkaline Phosphatase 68 Ammonia 58.6 H Total Protein 6.3 Albumin 2.6 L Blood Type Antibody Screen 05/15/20 05/15/20 06:48 16:22 WBC 6.6 RBC 2.15 L Hgb 6.9 L Hct 20.0 L MCV 93 MCH 32.0 MCHC 34.4 RDW 16.0 H Plt Count 164 Seg Neutrophils % 69.8 Sodium Potassium Chloride Carbon Dioxide Anion Gap BUN Creatinine Est GFR ( Amer) Glucose Calcium Total Bilirubin AST Alkaline Phosphatase Ammonia Total Protein Albumin Blood Type A NEGATIVE Antibody Screen NEGATIVE 05/13/20 05/13/20 03:42 03:42 Troponin I < 0.012 NT-Pro-B Natriuret Pep 1040 H Impressions: Head CT 05/13/20 03:26 IMPRESSION: No acute intracranial findings. Chest X-Ray 05/13/20 03:28 IMPRESSION: Congestive change. Abdomen Ultrasound 05/15/20 00:00 IMPRESSION: Insufficient window for safe paracentesis. Assessment and Plan - Diagnosis (1) Acute hepatic encephalopathy Is this a current diagnosis for this admission?: Yes Plan: Continue lactulose and monitor ammonia as appropriate (2) Alcoholic cirrhosis of liver Qualifiers: Ascites presence: with ascites Qualified Code(s): K70.31 - Alcoholic cirrho sis of liver with ascites Is this a current diagnosis for this admission?: Yes Plan: No ascites identified on US (3) Altered mental status Qualifiers: Altered mental status type: unspecified Qualified Code(s): R41.82 - Altered mental status, unspecified Is this a current diagnosis for this admission?: Yes Plan: Improved, Ammonia level decreasing (4) Chronic anemia Is this a current diagnosis for this admission?: Yes Plan: Hemoglobin is down, transfused 1 unit PRBC, will recheck h and h. There is no evidence of acute blood loss this is likely from his chronic anemia - Plan Summary Summary: Abdominal ultrasound revealed insufficient window for safe paracentesis and so this was not done. Initial hemoglobin was 6.6 this morning and posttransfusion was 6.9. Will transfuse 1 more unit and recheck in a.m. is more awake and alert and able to carry on a conversation - Time Time Spent with patient: 15-24 minutes Anticipated Discharge Disposition: [facility] Anticipated Discharge Timeframe: within 24 hours
[2020-05-16] MEDS: LACTULOSE SYRUP 20 GM/30 ML UDCUP PO SCH ×2 (05:40→11:58)
[2020-05-16] MEDS: OXYCODONE HCL IR 5 MG TABLET PO PRN (05:51)
[2020-05-16] MEDS: NORMAL SALINE 1000 ML 1,000 ML IV PRN (05:52)
[2020-05-16 07:24] LABS: ABSOLUTE EOSINOPHILS # (AUTO) 0.2 10^3/uL (0.0-0.6); ABSOLUTE LYMPHOCYTES (AUTO) 1.7 10^3/uL (0.5-4.7); ABSOLUTE MONOCYTES (AUTO) 0.5 10^3/uL (0.1-1.4); ABSOLUTE NEUT (AUTO) 3.7 10^3/uL (1.7-8.2); BASOPHILS % (AUTO) 0.6 % (0-2); EOSINOPHILS % (AUTO) 3.8 % (0-6); HEMATOCRIT 22.6 % (37.9-51.0); LYMPHOCYTES % (AUTO) 27.7 % (13-45); MEAN CORPUSCULAR HEMOGLOBIN 31.2 pg (27.0-33.4); MEAN CORPUSCULAR HGB CONC 34.3 g/dL (32.0-36.0); MEAN CORPUSCULAR VOLUME 91 fl (80-97); MONOCYTES % (AUTO) 7.9 % (3-13); PLATELET COUNT 160 10^3/uL (150-450); RED BLOOD COUNT 2.48 10^6/uL (4.35-5.55); RED CELL DISTRIBUTION WIDTH 17.3 % (11.5-14.0); TOTAL CELLS COUNTED % (AUTO) 100 %; WHITE BLOOD COUNT 6.1 10^3/uL (4.0-10.5)
[2020-05-16 07:28] LABS: HEMOGLOBIN 7.8 g/dL (13.5-17.0)
[2020-05-16] MEDS ORDERED: ALLOPURINOL 300 MG TABLET PO SCH (08:15)
[2020-05-16] MEDS ORDERED: FUROSEMIDE 20 MG TABLET PO SCH (08:15)
[2020-05-16] MEDS: DOCUSATE SODIUM 100 MG CAPSULE PO SCH (09:13)
[2020-05-16] MEDS: FAMOTIDINE 20 MG TABLET PO SCH (09:14)
[2020-05-16] MEDS ORDERED: DULOXETINE HCL 30 MG CAPSULE.DR PO SCH (10:00)
[2020-05-16] MEDS ORDERED: SPIRONOLACTONE 25 MG TABLET PO SCH (10:00)
[2020-05-16] MEDS ORDERED: METOPROLOL TARTRATE 50 MG TABLET PO SCH (10:00)
[2020-05-16] MEDS ORDERED: GABAPENTIN 400 MG CAPSULE PO SCH (10:00)
[2020-05-16] MEDS ORDERED: NYSTATIN/DEXAMETH/DIPHEN SUSP 120 ML PO PRN (10:00)
--- NOTE | 2020-05-16 11:43 | PDOC TRANSFER SUMMARY ---
Impression - Admit/DC Date/PCP Admission Date/Primary Care Provider: 05/13/20 06:58 CLEM ALMEIDA MD Discharge Date: 05/16/20 - Discharge Diagnosis (1) Acute hepatic encephalopathy Is this a current diagnosis for this admission?: Yes (2) Alcoholic cirrhosis of liver Is this a current diagnosis for this admission?: Yes (3) Altered mental status Is this a current diagnosis for this admission?: Yes (4) Chronic anemia Is this a current diagnosis for this admission?: Yes (5) CHF, chronic Is this a current diagnosis for this admission?: Yes - Assessment Summary: Patient likely has CHF with congestive changes on chest x-ray and elevated BNP. Further work-up is strongly suggested as outpatient. Patient is also on Xarelto for chronic atrial fibrillation. He was in sinus rhythm while in hospital - Additional Information Resuscitation Status: Full Code Discharge Diet: Cardiac Discharge Activity: Activity As Tolerated Referrals: CLEM ALMEIDA MD [Primary Care Provider] - Follow up as needed Home Medications: Allopurinol [Zyloprim 300 mg Tablet] 300 mg PO QAM 05/06/20 Fluticasone Propionate [Flonase Nasal Emery 50 Mcg/Emery 16 gm] 1 spray NASL QAM 05/06/20 Gabapentin [Neurontin 400 mg Capsule] 400 mg PO Q12 05/06/20 Magnesium Oxide [Mag-Ox 400 mg Tablet] 400 mg PO QAM 05/06/20 Metoprolol Tartrate [Lopressor 50 mg Tablet] 50 mg PO Q12 05/06/20 Multivit,Tx with Iron,Minerals [Thera-M] 1 tab PO QAM 05/06/20 Nystatin/Dexameth/Diphen [Magic Mouthwash] 5 ml PO Q6HP PRN 05/06/20 Omeprazole 20 mg PO Q6AM 05/06/20 Oxycodone HCl [Oxy-Ir 5 mg Tablet] 10 mg PO Q6HP PRN 05/06/20 Rivaroxaban [Xarelto] 20 mg PO QPM 05/06/20 Duloxetine HCl [Cymbalta 30 mg Capsule.] 30 mg PO Q12 capsule. 05/08/20 Melatonin [Melatonin 5 mg Tablet] 10 mg PO QHS tablet 05/08/20 Mirtazapine [Remeron 15 mg Tablet] 7.5 mg PO QHS tablet 05/08/20 Spironolactone [Aldactone 25 mg Tablet] 25 mg PO DAILY tablet 05/08/20 Oxycodone HCl [Oxy-Ir 5 mg Tablet] 5 mg PO Q6HP PRN 05/13/20 Furosemide [Lasix 20 mg Tablet] 40 mg PO QAM #0 05/16/20 Lactulose [Cephulac Syrup 20 gm/30 ml Udcup] 20 gm PO QID #0 05/16/20 Lactulose [Cephulac Syrup 20 gm/30 ml Udcup] 30 gm PO Q6 udc 05/16/20 Ondansetron [Zofran Odt 4 mg Tablet] 4 mg PO Q4HP PRN tab.rapdis 05/16/20 Oxycodone HCl [Oxy-Ir 5 mg Tablet] 5 mg PO Q6HP PRN tablet 05/16/20 History of Present Illiness History of Present Illness: ANURAG MASON is a 54 year old male He was just discharged to [place] on May. He apparently was found naked and combative with multiple skin tears that were bleeding. It was felt that patient may have an acute encephalopathy again from his cirrhosis of the liver and so he was brought to the emergency room. In the emergency room his ammonia level is found to be elevated at 60 although it was 67.6 during his last admission. Patient was given 20 g of lactulose and we awaiting results from that. He is anemic however this is chronic. His hemoglobin is actually better than it was when he was discharged just a few days ago. Patient is actually somewhat uncooperative and was unable to provide much information to me Patient presented to the hospital with complaints of change in mental status. He was recently [facility] to [facility]. He was found to be confused and stated was admitted for further management. Hospital Course Hospital Course: Patient was placed on the medical unit and was started on increased dose of lactulose and she was felt to be nephrotic encephalopathy. His initial ammonia level was elevated at 60.4. Patient received lactulose and his mentation actually started to improve. It has improved over the last few days that he has been in hospital. Ammonia level is less than 10 today. Patient did have adequate and appropriate bowel movements. In the interim he was found to have anemia which was worse than his baseline and so he received 2 units of packed red blood cell transfusion. Initial hemoglobin on presentation was 8.2 and this dipped down to 6.6 with patient ultimately receiving 2 units of packed red blood cells. Hemoglobin today is 7.8 which is around his baseline. Patient was found to be somewhat tachycardic overnight but his metoprolol have been held and so this was restarted with his heart rate improving at this time. Attempt was made to obtain a paracentesis as patient was thought to have ascites however no adequate fluid was visualized for paracentesis so this was not done. Patient had no evidence of any infection while in hospital. With patient being hemodynamically stable and with no further interventions been planned at this time he has been discharged back to the [facility]. Physical Exam Vital Signs: Temp Pulse Resp BP Pulse Ox 98.6 F 102 H 16 144/81 H 100 05/16/20 07:38 05/16/20 07:38 05/16/20 07:38 05/16/20 07:38 05/16/20 07:38 Intake & Output 05/15/20 05/16/20 05/17/20 06:59 06:59 06:59 Intake Total 2230 2090 179 Output Total 450 400 Balance 1780 1690 179 Weight 84 kg 84.2 kg General appearance: PRESENT: no acute distress Head exam: PRESENT: atraumatic, normocephalic Eye exam: PRESENT: conjunctiva pale, EOMI, PERRLA. ABSENT: scleral icterus Ear exam: PRESENT: normal external ear exam Mouth exam: PRESENT: moist, tongue midline Neck exam: ABSENT: carotid bruit, JVD, lymphadenopathy, thyromegaly Respiratory exam: PRESENT: clear to auscultation marcia, unlabored. ABSENT: rales, rhonchi, wheezes Cardiovascular exam: PRESENT: RRR, +S1, +S2. ABSENT: diastolic murmur, rubs, systolic murmur GI/Abdominal exam: PRESENT: distended, normal bowel sounds, soft. ABSENT: guarding, mass, organolmegaly, rebound, tenderness Rectal exam: PRESENT: deferred Extremities exam: PRESENT: full ROM. ABSENT: calf tenderness, clubbing, pedal edema Neurological exam: PRESENT: alert, awake, oriented to person, oriented to place, oriented to situation, other - intermittent confusion. ABSENT: motor sensory deficit Psychiatric exam: PRESENT: appropriate affect, normal mood. ABSENT: homicidal ideation, suicidal ideation Skin exam: PRESENT: petechiae, skin tears, other - Multiple papules, scattered abrasions. ABSENT: cyanosis, rash Results Laboratory Results: WBC 6.1 10^3/uL (4.0-10.5) 05/16/20 06:38 RBC 2.48 10^6/uL (4.35-5.55) L 05/16/20 06:38 Hgb 7.8 g/dL (13.5-17.0) L 05/16/20 06:38 Hct 22.6 % (37.9-51.0) L 05/16/20 06:38 MCV 91 fl (80-97) 05/16/20 06:38 MCH 31.2 pg (27.0-33.4) 05/16/20 06:38 MCHC 34.3 g/dL (32.0-36.0) 05/16/20 06:38 RDW 17.3 % (11.5-14.0) H 05/16/20 06:38 Plt Count 160 10^3/uL (150-450) 05/16/20 06:38 Lymph % (Auto) 27.7 % (13-45) 05/16/20 06:38 Cocke % (Auto) 7.9 % (3-13) 05/16/20 06:38 Eos % (Auto) 3.8 % (0-6) 05/16/20 06:38 Baso % (Auto) 0.6 % (0-2) 05/16/20 06:38 Absolute Neuts (auto) 3.7 10^3/uL (1.7-8.2) 05/16/20 06:38 Absolute Lymphs (auto) 1.7 10^3/uL (0.5-4.7) 05/16/20 06:38 Absolute Monos (auto) 0.5 10^3/uL (0.1-1.4) 05/16/20 06:38 Absolute Eos (auto) 0.2 10^3/uL (0.0-0.6) 05/16/20 06:38 Absolute Basos (auto) 0.0 10^3/uL (0.0-0.2) 05/16/20 06:38 Seg Neutrophils % 60.0 % (42-78) 05/16/20 06:38 PT 18.3 SEC (11.4-15.4) H 05/15/20 05:30 INR 1.51 05/15/20 05:30 APTT 49.3 SEC (23.5-35.8) H 05/14/20 17:00 Sodium 134.4 mmol/L (137-145) L 05/15/20 05:30 Potassium 3.9 mmol/L (3.6-5.0) 05/15/20 05:30 Chloride 107 mmol/L (98-107) 05/15/20 05:30 Carbon Dioxide 22 mmol/L (22-30) 05/15/20 05:30 Anion Gap 5 (5-19) 05/15/20 05:30 BUN 31 mg/dL (7-20) H 05/15/20 05:30 Creatinine 0.90 mg/dL (0.52-1.25) 05/15/20 05:30 Est GFR ( Amer) > 60 (>60) 05/15/20 05:30 Est GFR (MDRD) Non-Af > 60 (>60) 05/15/20 05:30 Glucose 129 mg/dL (75-110) H 05/15/20 05:30 Calcium 8.4 mg/dL (8.4-10.2) 05/15/20 05:30 Total Bilirubin 1.1 mg/dL (0.2-1.3) 05/15/20 05:30 Direct Bilirubin 0.4 mg/dL (0.0-0.4) 05/15/20 05:30 Neonat Total Bilirubin Not Reportable 05/15/20 05:30 Neonat Direct Bilirubin Not Reportable 05/15/20 05:30 Neonat Indirect Bili Not Reportable 05/15/20 05:30 AST 25 U/L (17-59) 05/15/20 05:30 ALT 10 U/L (<50) 05/15/20 05:30 Alkaline Phosphatase 68 U/L (38-126) 05/15/20 05:30 Ammonia < 8.7 umol/L (9-33) L 05/16/20 06:38 Troponin I < 0.012 ng/mL 05/13/20 03:42 NT-Pro-B Natriuret Pep 1040 pg/mL (<125) H 05/13/20 03:42 Total Protein 6.3 g/dL (6.3-8.2) 05/15/20 05:30 Albumin 2.6 g/dL (3.5-5.0) L 05/15/20 05:30 Urine Color STRAW 05/13/20 03:42 Urine Appearance CLEAR 05/13/20 03:42 Urine pH 7.0 (5.0-9.0) 05/13/20 03:42 Ur Specific [place] 1.003 05/13/20 03:42 Urine Protein NEGATIVE mg/dL (NEGATIVE) 05/13/20 03:42 Urine Glucose (UA) NEGATIVE mg/dL (NEGATIVE) 05/13/20 03:42 Urine Ketones NEGATIVE mg/dL (NEGATIVE) 05/13/20 03:42 Urine Blood SMALL (NEGATIVE) H 05/13/20 03:42 Urine Nitrite NEGATIVE (NEGATIVE) 05/13/20 03:42 Urine Bilirubin NEGATIVE (NEGATIVE) 05/13/20 03:42 Urine Urobilinogen NEGATIVE mg/dL (<2.0) 05/13/20 03:42 Ur Leukocyte Esterase NEGATIVE (NEGATIVE) 05/13/20 03:42 Urine WBC (Auto) 0 /HPF 05/13/20 03:42 Urine RBC (Auto) 0 /HPF 05/13/20 03:42 Urine Mucus (Auto) RARE /LPF 05/13/20 03:42 Urine Ascorbic Acid NEGATIVE (NEGATIVE) 05/13/20 03:42 Urine Opiates Screen NEGATIVE 05/13/20 03:42 Urine Methadone Screen NEGATIVE 05/13/20 03:42 Ur Barbiturates Screen NEGATIVE 05/13/20 03:42 Ur Phencyclidine Scrn NEGATIVE 05/13/20 03:42 Ur Amphetamines Screen NEGATIVE 05/13/20 03:42 U Benzodiazepines Scrn NEGATIVE 05/13/20 03:42 Urine Cocaine Screen NEGATIVE 05/13/20 03:42 U Marijuana (THC) Screen NEGATIVE 05/13/20 03:42 Serum Alcohol < 10 mg/dL (NONE DETECTED) 05/13/20 03:42 Blood Type A NEGATIVE 05/15/20 06:48 Blood Type Confirm A NEGATIVE 05/15/20 06:48 Antibody Screen NEGATIVE 05/15/20 06:48 Crossmatch See Detail 05/15/20 06:48 05/13/20 05/13/20 03:42 03:42 Troponin I < 0.012 NT-Pro-B Natriuret Pep 1040 H Impressions: Head CT 05/13/20 03:26 IMPRESSION: No acute intracranial findings. Chest X-Ray 05/13/20 03:28 IMPRESSION: Congestive change. Abdomen Ultrasound 05/15/20 00:00 IMPRESSION: Insufficient window for safe paracentesis. Plan Health Concerns: Patient's lactulose to be adjusted to maintain appropriate bowel movements of about 6 small loose stools per day. We will also follow-up on his labs and adjust his Lasix as needed. He did receive an extra dose of Lasix in hospital as his BNP was found to be elevated. He likely needs follow-up with an echocardiogram as I see none on file in this hospital Time Spent: Greater than 30 Minutes Stroke Is this a Stroke Patient?: No Acute Heart Failure Is this a Heart Failure Patient?: No
[2020-05-16 16:09] VITALS: BP 126/77
[2020-05-16] MEDS ORDERED: RIVAROXABAN 10 MG TABLET PO SCH (18:00)
[2020-05-16] MEDS ORDERED: MELATONIN 5 MG TABLET PO SCH (22:00)
[2020-05-17] MEDS ORDERED: MAGNESIUM OXIDE 400 MG TABLET PO SCH (08:00)
[2020-05-17] MEDS ORDERED: FLUTICASONE NASAL SPRAY 50 MCG/SPRY 120 SPRAY/16 GM NASL SCH (08:00)
== END 2020-05-16 16:20 | DRG 433 ==
LOC: ER 02:19 → EH 06:58 → 4W 14:40
PROVIDERS: ADMIT Internal Medicine; ATTEND Internal Medicine
PROC: 30233N1 Transfusion of Nonautologous Red Blood Cells into Peripheral Vein, Percutaneous Approach (ICD-10-PCS; principal; 2020-05-15)
DX: K70.40 Alcoholic hepatic failure without coma (principal); I48.20 Chronic atrial fibrillation, unspecified; I11.0 Hypertensive heart disease with heart failure; I50.9 Heart failure, unspecified; D64.9 Anemia, unspecified; E78.5 Hyperlipidemia, unspecified; E11.9 Type 2 diabetes mellitus without complications; K21.9 Gastro-esophageal reflux disease without esophagitis; K70.30 Alcoholic cirrhosis of liver without ascites; R41.82 Altered mental status, unspecified; Z79.01 Long term (current) use of anticoagulants; Z79.899 Other long term (current) drug therapy; Z89.422 Acquired absence of other left toe(s)
CPT/HCPCS: 36415; 36430; 70450; 71045; 76705; 80048; 80053; 80307; 81001; 82140; 83880; 84484; 85025; 85610; 85730; 86850; 86900; 86901; 86920; 93005; 93010; 99285; J1200; J1650; J1940; J3490; J7030; P9016

== ENCOUNTER 2020-05-24 12:18 | Emergency (ER) | payer MEDICAID ==
[2020-05-24 13:37] LABS: ABSOLUTE EOSINOPHILS # (AUTO) 0.3 10^3/uL (0.0-0.6); ABSOLUTE LYMPHOCYTES (AUTO) 1.3 10^3/uL (0.5-4.7); ABSOLUTE MONOCYTES (AUTO) 0.5 10^3/uL (0.1-1.4); ABSOLUTE NEUT (AUTO) 2.2 10^3/uL (1.7-8.2); EOSINOPHILS % (AUTO) 6.3 % (0-6); LYMPHOCYTES % (AUTO) 30.1 % (13-45); MEAN CORPUSCULAR HEMOGLOBIN 31.7 pg (27.0-33.4); MEAN CORPUSCULAR HGB CONC 33.4 g/dL (32.0-36.0); MEAN CORPUSCULAR VOLUME 95 fl (80-97); MONOCYTES % (AUTO) 11.7 % (3-13); PLATELET COUNT 190 10^3/uL (150-450); RED BLOOD COUNT 1.79 10^6/uL (4.35-5.55); RED CELL DISTRIBUTION WIDTH 16.9 % (11.5-14.0); SEGMENTED NEUTROPHILS % (AUTO) 50.9 % (42-78); TOTAL CELLS COUNTED % (AUTO) 100 %; WHITE BLOOD COUNT 4.3 10^3/uL (4.0-10.5)
[2020-05-24 13:40] LABS: HEMOGLOBIN 5.7 g/dL (13.5-17.0)
[2020-05-24 13:51] LABS: ALBUMIN 2.9 g/dL (3.5-5.0); ALKALINE PHOSPHATASE 93 U/L (38-126); ANION GAP 6 (5-19); ASPARTATE AMINO TRANSFERASE 29 U/L (17-59); BILIRUBIN,DIRECT 0.4 mg/dL (0.0-0.4); BILIRUBIN,TOTAL 0.5 mg/dL (0.2-1.3); BLOOD UREA NITROGEN 25 mg/dL (7-20); CALCIUM 8.6 mg/dL (8.4-10.2); CARBON DIOXIDE 26 mmol/L (22-30); CHLORIDE 102 mmol/L (98-107); GLUCOSE 153 mg/dL (75-110); POTASSIUM 4.4 mmol/L (3.6-5.0); TOTAL PROTEIN 6.6 g/dL (6.3-8.2)
--- NOTE | 2020-05-24 14:30 | ER Document Report ---
ED General - General Chief Complaint: Abnormal Lab Results Stated Complaint: ABNORMAL LABS Time Seen by Provider: 05/24/20 13:41 Primary Care Provider: CLEM ALMEIDA MD [Primary Care Provider] - Follow up as needed Notes: HPI: 54-year-old male who presents today secondary to the need for blood secondary to a low hemoglobin level. He is with labs drawn by [facility] on Tuesday, 5 days ago. Patient's hemoglobin was supposedly around 6. Patient has been admitted and discharged here on May 08 and . Both times were for hepatic encephalopathy treated with lactulose. Patient does have some chronic kidney disease as well as some chronic anemia. On the the patient did receive 2 units of blood. Patient denies any black or bloody stools. Patient denies any and all pain in his abdomen, chest, head, weakness or numbness, nausea, vomiting, or fevers. He was transfused during this past admission. ROS: See HPI All other review of systems reviewed and otherwise negative Reviewed vital signs and nursing note as charted by RN. PHYSICAL EXAM: CONSTITUTIONAL: Alert and oriented and responds appropriately to questions. Well-appearing; well-nourished HEAD: Normocephalic; atraumatic EYES: PERRL; sclerae pale ENT: Normal nose; no rhinorrhea; moist mucous membranes; pharynx without lesions noted NECK: Supple without meningismus; non-tender; no cervical lymphadenopathy, no masses CARD: Regular rate and rhythm; no murmurs; symmetric distal pulses RESP: Normal chest excursion without splinting or tachypnea; breath sounds clear and equal bilaterally; no wheezes, no rhonchi, no rales ABD/GI: Normal bowel sounds; abdomen is distended without any obvious fluid wave; soft, non-tender; no palpable organomegaly or masses BACK: The back appears normal and is non-tender to palpation EXT: Normal ROM in all joints; non-tender to palpation; no edema SKIN: No acute lesions noted NEURO: CN 2-12 intact; 5/5 bilateral upper and lower extremity strength with sensation intact to light touch PSYCH: The patient's mood and manner are appropriate. Grooming and personal hygi carolyn are appropriate. TRAVEL OUTSIDE OF THE [place] IN LAST 30 DAYS: No - Related Data Allergies/Adverse Reactions: No Known Allergies Allergy (Verified 05/13/20 08:22) Past Medical History - Social History Smoking Status: Former Smoker Chew tobacco use (# tins/day): No Frequency of alcohol use: None Drug Abuse: None Family History: Other - Unable to obtain due to patient's current mental status Patient has homicidal ideation: No - Past Medical History Cardiac Medical History: Reports: Hx Atrial Fibrillation, Hx Congestive Heart Failure, Hx Hypercholesterolemia, Hx Hypertension Endocrine Medical History: Reports: Hx Diabetes Mellitus Type 2 GI Medical History: Reports: Hx Cirrhosis, Hx Gastroesophageal Reflux Disease Psychiatric Medical History: Denies: Hx Depression Past Surgical History: Reports: Other - Paracentesis Left toe amputation - Immunizations Immunizations up to date: Yes Hx Diphtheria, Pertussis, Tetanus Vaccination: Yes Physical Exam - Vital signs Vitals: Temp 97.5 F 05/24/20 12:19 Course - Re-evaluation Re-evalutation: Given the patient's history and physical, I did perform a rectal examination showing no gross blood with a Hemoccult negative stool. Patient denies any pain. Vital signs are stable. No shortness of breath. No abdominal tenderness. 05/24/20 14:29 Labs initially as recorded. We will provide blood. I will discuss with the hospitalist the most appropriate disposition. Patient has not had a colonoscopy in 5 years but the patient is Hemoccult negative. 05/24/20 14:39 Given the patient's anemia with Hemoccult negative stool, with no recent colonoscopy or endoscopy, I did discuss this with the hospitalist given the patient has 2 recent prior admissions. He states he would like me to order iron studies which I have added. I have consented the patient for blood. He states he will come down to see the patient once the iron studies have resulted and the patient has received blood. He will decide at that time whether the patient needs admission with full evaluation and can be discharged home with strict return precautions. 05/24/20 17:33 Iron panel as recorded as requested by the hospitalist. He has reviewed the jonas ritter's chart. He does not believe the patient requires admission. He would like me to have the patient discharged back to [facility] and have the patient start on iron at 325 mg 3 times a day with meals as well as a B complex vitamin daily and follow-up with the primary doctor with a repeat hemoglobin 2 days from now. Patient is very comfortable with this plan. Patient was refusing admission initially on my first interview as well. He is receiving blood at this time. He denies any shortness of breath. Still no abdominal pain. - Vital Signs Vital signs: Temp Pulse Resp BP Pulse Ox 97.5 F 65 15 102/67 100 05/24/20 16:11 05/24/20 16:11 05/24/20 16:45 05/24/20 16:45 05/24/20 16:45 - Laboratory Result Diagrams: 05/24/20 13:20 05/24/20 13:20 Laboratory results interpreted by me: 05/24/20 05/24/20 05/24/20 13:20 13:20 13:20 RBC 1.79 L Hgb 5.7 L Hct 17.0 L RDW 16.9 H Eos % (Auto) 6.3 H Retic Count (auto) Sodium 133.6 L BUN 25 H Glucose 153 H Iron Ammonia 61.4 H Albumin 2.9 L Crossmatch 05/24/20 05/24/20 05/24/20 13:20 13:20 13:20 RBC Hgb Hct RDW Eos % (Auto) Retic Count (auto) 3.74 H Sodium BUN Glucose Iron 17.5 L Ammonia Albumin Crossmatch See Detail Critical Care Note - Critical Care Note Total time excluding time spent on procedures (mins): 40 Discharge - Discharge Clinical Impression: Acute blood loss anemia Condition: Fair Disposition: HOME, SELF-CARE Additional Instructions: Please provide 325 mg of ferrous sulfate 3 times a day with meals. Please also have the patient take a B complex vitamin daily. Please have the patient have a repeat hemoglobin in 24 to 48 hours with reassessment by the primary provider on Tuesday. Have the patient return immediately with any abdominal pain, lightheadedness, dizziness, chest pain, shortness of breath, fevers, or any other acute problems. Referrals: CLEM ALMEIDA MD [Primary Care Provider] - Follow up as needed
[2020-05-24] MEDS ORDERED: NORMAL SALINE 250 ML IV PRN ×2 (14:33)
[2020-05-24 14:56] LABS: IRON(TIBC) 17.5 ug/dL (49-181)
[2020-05-24 15:11] LABS: ABSOLUTE RETICS # 0.067 10^6/uL (0.028-0.122); RETICULOCYTE COUNT (AUTO) 3.74 % (0.66-2.85)
[2020-05-24] MEDS ORDERED: MORPHINE SULFATE 10 MG/ML INJ IV ONE (16:12)
[2020-05-24] MEDS ORDERED: MORPHINE SULFATE 10 MG/ML INJ IM ONE (16:17)
[2020-05-24] MEDS ORDERED: FERROUS SULFATE 325 MG TABLET PO ONE ×2 (17:35→22:00)
[2020-05-24 21:42] VITALS: BP 102/73
== END 2020-05-24 22:31 | disposition home or self-care (01) ==
LOC: ER 12:18
DX: D62 Acute posthemorrhagic anemia (principal); I12.9 Hypertensive chronic kidney disease with stage 1 through stage 4 chronic kidney disease, or unspecified chronic kidney disease; E11.22 Type 2 diabetes mellitus with diabetic chronic kidney disease; N18.9 Chronic kidney disease, unspecified; D63.1 Anemia in chronic kidney disease; R14.0 Abdominal distension (gaseous); Z87.891 Personal history of nicotine dependence
CPT/HCPCS: 99284; 96372; 86900; 86901; 36415; 36430; 86850; 82140; 82607; 82728; 82746; 83540; 83550; 85025; 85045; 80053; 86920; P9016; J3490; J2270

== ENCOUNTER 2020-06-24 19:23 | Inpatient (IN) | payer MEDICAID ==
--- NOTE | 2020-06-24 20:14 | ER Document Report ---
ED General - General Chief Complaint: Nausea/Vomiting Stated Complaint: SLIGHTLY ALTERED,VOMITING Time Seen by Provider: 06/24/20 20:13 Primary Care Provider: CLEM ALMEIDA MD [Primary Care Provider] - Follow up as needed TRAVEL OUTSIDE OF THE [place] IN LAST 30 DAYS: No - HPI Notes: 54-year-old male presents with an episode of vomiting, which per report was described as coffee-ground in appearance from the care home, reportedly happen once today. Patient is a very limited historian. He initially denied complaints, then states he was having some pain with pooping. He states he does not remember vomiting. Patient noticed to have some dried blood in his left nose, he states he does not know if he had a nosebleed. - Related Data Allergies/Adverse Reactions: No Known Allergies Allergy (Verified 06/24/20 19:42) Past Medical History - Social History Smoking Status: Unknown if Ever Smoked Family History: Other - Unable to obtain due to patient's current mental status Patient has homicidal ideation: No - Past Medical History Cardiac Medical History: Reports: Hx Atrial Fibrillation, Hx Congestive Heart Failure, Hx Hypercholesterolemia, Hx Hypertension Endocrine Medical History: Reports: Hx Diabetes Mellitus Type 2 GI Medical History: Reports: Hx Cirrhosis, Hx Gastroesophageal Reflux Disease Psychiatric Medical History: Denies: Hx Depression Past Surgical History: Reports: Other - Paracentesis Left toe amputation - Immunizations Immunizations up to date: Yes Hx Diphtheria, Pertussis, Tetanus Vaccination: Yes Review of Systems - Review of Systems -: Yes ROS unobtainable due to patient's medical condition Physical Exam - Vital signs Vitals: Resp Pulse Ox 27 H 100 06/24/20 19:58 06/24/20 19:58 - General General appearance: Alert Notes: Chronically ill-appearing - HEENT Head: Normocephalic, Atraumatic Eyes: No: Scleral icterus Extraocular movements intact: Yes Pupils: PERRL Nasal: Other - Dried blood in left nostril, there appears to be an area of engorged vessels, no active hemorrhage - Respiratory Breath sounds: Normal - Cardiovascular Rhythm: Irregularly irregular Heart sounds: Normal auscultation Normal capillary refill: Yes - Abdominal Inspection: Caput medussa Bowel sounds: Normal Tenderness: Nontender Notes: Umbilical hernia, soft and nontender - Rectal Notes: Medium brown stool, heme-negative, no gross blood per rectum - Extremities General upper extremity: Normal ROM General lower extremity: Normal ROM. No: Edema - Neurological Notes: Patient is alert, his speech is clear, he is able to follow commands, answers do not necessarily always make sense such as when asked what he needed he said "to heat up the plates", some mild confusion - Psychological Associated symptoms: Flat affect - Skin Skin Temperature: Warm Course - Re-evaluation Re-evalutation: 54-year-old male here from care home for reports of one episode of coffee- ground emesis. Patient has history of alcoholic cirrhosis with encephalopathy, chronic anemia and CHF. On exam he is chronically ill-appearing, no acute distress. Lungs are clear, abdomen is without any focal areas of tenderness, stool is heme negative, does have some dried blood in the left nostril. Patient would be at risk for upper GI bleeding given his history, however heme negative stool is currently reassuring. Possibility may have came from a nosebleed. Xarelto is listed in his medication list, per med rec it looks like it was last filled in September 2019. Some confusion noted, possible acute on chronic hepatic encephalopathy, ammonia level pending. Will check labs for any acute changes. Per chart review he has had multiple blood transfusions in the past, need for endoscopy/colonoscopy has been discussed but does not seem that is been performed. 06/24/20 21:19 Hg 7.2, above transfusion threshold currently, is within patient's ranges of previous hemoglobins. Intend on admission, can be trended and transfused if drops. I called the care home to discuss patient's presentation today. Per nurse patient was throwing up blood -she described it as dark mixed with food. He was additionally lethargic and confusion, wasn't interactive as usual/not speaking, which happens when his ammonia is high, reportedly his ammonia is high when they check labs today. Also states he had loose stools with clots of blood (new today), gave fluids. I saw that Xarelto was in his med list, ask if he is still taking this, she reports xarelto has been on hold about 1 week. Given this information, will touch base with GI, will order Protonix 40 mg bolus. 06/24/20 21:[address] Lynn who is on-call for GI, we discussed patient's case and that patient is in need of endoscopy, he is agreeable to scope the patient. He request a Covid test and medicine admission. 06/24/20 21:47 The hospital is currently out of rapid Covid test, unfortunately therefore patient will have to go routine Covid testing for his procedure 06/24/20 21:51 Ammonia has down tended from initial lab check today. We will give his usual home dose of lactulose. Discussed patient for admission with Dr. Padilla - Vital Signs Vital signs: Temp Pulse Resp BP Pulse Ox 17 123/76 100 06/24/20 21:00 06/24/20 20:00 06/24/20 20:01 - Laboratory Result Diagrams: 06/24/20 20:03 06/24/20 20:03 Laboratory results interpreted by me: 06/24/20 06/24/20 06/24/20 20:03 20:03 20:03 RBC 2.32 L Hgb 7.2 L Hct 21.8 L RDW 17.9 H PT 23.1 H APTT 53.8 H Chloride 109 H BUN 48 H Glucose 116 H Direct Bilirubin 0.5 H Ammonia Albumin 3.1 L 06/24/20 20:47 RBC Hgb Hct RDW PT APTT Chloride BUN Glucose Direct Bilirubin Ammonia 46.2 H Albumin Discharge - Discharge Clinical Impression: Hepatic encephalopathy, UGIB (upper gastrointestinal bleed), Chronic anemia, Alcoholic cirrhosis of liver with ascites Disposition: ADMITTED INPATIENT Admitting Provider: Valerie Unit Admitted: [facility] Referrals: CLEM ALMEIDA MD [Primary Care Provider] - Follow up as needed
[2020-06-24 20:44] LABS: ABSOLUTE EOSINOPHILS # (AUTO) 0.1 10^3/uL (0.0-0.6); ABSOLUTE LYMPHOCYTES (AUTO) 1.1 10^3/uL (0.5-4.7); ABSOLUTE MONOCYTES (AUTO) 0.4 10^3/uL (0.1-1.4); ABSOLUTE NEUT (AUTO) 2.9 10^3/uL (1.7-8.2); BASOPHILS % (AUTO) 0.7 % (0-2); EOSINOPHILS % (AUTO) 2.9 % (0-6); HEMATOCRIT 21.8 % (37.9-51.0); LYMPHOCYTES % (AUTO) 24.6 % (13-45); MEAN CORPUSCULAR HEMOGLOBIN 31.2 pg (27.0-33.4); MEAN CORPUSCULAR HGB CONC 33.2 g/dL (32.0-36.0); MEAN CORPUSCULAR VOLUME 94 fl (80-97); MONOCYTES % (AUTO) 8.8 % (3-13); PLATELET COUNT 160 10^3/uL (150-450); RED BLOOD COUNT 2.32 10^6/uL (4.35-5.55); RED CELL DISTRIBUTION WIDTH 17.9 % (11.5-14.0); TOTAL CELLS COUNTED % (AUTO) 100 %; WHITE BLOOD COUNT 4.6 10^3/uL (4.0-10.5)
[2020-06-24 20:47] LABS: HEMOGLOBIN 7.2 g/dL (13.5-17.0); INTERNATIONAL RATION (INR) 2.04; PROTHROMBIN TIME 23.1 SEC (11.4-15.4)
[2020-06-24 20:48] LABS: PARTIAL THROMBOPLASTIN TIME 53.8 SEC (23.5-35.8)
[2020-06-24 20:58] LABS: ALBUMIN 3.1 g/dL (3.5-5.0); ALKALINE PHOSPHATASE 79 U/L (38-126); ANION GAP 8 (5-19); ASPARTATE AMINO TRANSFERASE 31 U/L (17-59); BILIRUBIN,DIRECT 0.5 mg/dL (0.0-0.4); BILIRUBIN,TOTAL 0.8 mg/dL (0.2-1.3); BLOOD UREA NITROGEN 48 mg/dL (7-20); CALCIUM 9.7 mg/dL (8.4-10.2); CARBON DIOXIDE 22 mmol/L (22-30); CHLORIDE 109 mmol/L (98-107); GLUCOSE 116 mg/dL (75-110); POTASSIUM 4.8 mmol/L (3.6-5.0); TOTAL PROTEIN 7.3 g/dL (6.3-8.2)
[2020-06-24] MEDS ORDERED: PANTOPRAZOLE SODIUM 40 MG VIAL IV ONE (21:24)
[2020-06-24] MEDS ORDERED: LACTULOSE SYRUP 20 GM/30 ML UDCUP PO ONE (21:41)
[2020-06-24] MEDS ORDERED: ONDANSETRON HCL INJ/PF 4 MG/2 ML SDV IV PRN (22:32)
[2020-06-24] MEDS ORDERED: NORMAL SALINE 250 ML IV PRN ×4 (22:55→23:49)
[2020-06-24] MEDS ORDERED: CEFTRIAXONE INJ 500 MG VIAL IV SCH (23:00)
--- NOTE | 2020-06-24 23:07 | PDOC CONSULTATION ---
Consultation Consult Date: 06/24/20 Provider Consulted: MARIA EUGENIA NAJERA Consult reason:: Anemia, hepatic encephalopathy. cirrhosis History of Present Illness Admission Date/PCP: CLEM ALMEIDA MD History of Present Illness: ANURAG MASON is a 54 year old male patient has been brought in from the shelter it appears that patient had been seen in the ED multiple number of times in the past few months there is note about he patient possibly being on the transplant list in one of the previous notes although there is no objective determination of this patient has cirrhosis and had a previous admission for possible ascites as well has hepatic encephalopathy on this admission as previous visits has baseline anemia as well noted to have dried blood in nares reported by shelter to have blood in stools with clots however per ED physician who had called , noted to b e heme negative patient had apparent witness coffee ground emesis admitted for further work up has an elevated INR , there is a previous note to indicate possible use of Xarelto , but agaim verification is difficult has several issues that need to be sorted by the admitting physician please see documentation Past Medical History Cardiac Medical History: Reports: Atrial Fibrillation, Congestive Heart Failure, Hyperlipidema, Hypertension Endocrine Medical History: Reports: Diabetes Mellitus Type 2 GI Medical History: Reports: Cirrhosis, Gastroesophageal Reflux Disease Psychiatric Medical History: Denies: Depression Hematology: Reports: Anemia Past Surgical History Past Surgical History: Reports: Other - Paracentesis Left toe amputation Social History Smoking Status: Unknown if Ever Smoked Frequency of Alcohol Use: None Hx Recreational Drug Use: No Hx Prescription Drug Abuse: No Family History Family History: Other - Unable to obtain due to patient's current mental status Parental Family History Reviewed: Yes Children Family History Reviewed: Unknown Sibling(s) Family History Reviewed.: Unknown Medication/Allergy Home Medications: Allopurinol [Zyloprim 300 mg Tablet] 300 mg PO QAM 05/06/20 Fluticasone Propionate [Flonase Nasal [place] 50 Mcg/[place] 16 gm] 1 spray NASL QAM 05/06/20 Gabapentin [Neurontin 400 mg Capsule] 400 mg PO Q12 05/06/20 Magnesium Oxide [Mag-Ox 400 mg Tablet] 400 mg PO QAM 05/06/20 Metoprolol Tartrate [Lopressor 50 mg Tablet] 50 mg PO Q12 05/06/20 Multivit,Tx with Iron,Minerals [Thera-M] 1 tab PO QAM 05/06/20 Nystatin/Dexameth/Diphen [Magic Mouthwash] 5 ml PO Q6HP PRN 05/06/20 Omeprazole 20 mg PO Q6AM 05/06/20 Oxycodone HCl [Oxy-Ir 5 mg Tablet] 10 mg PO Q6HP PRN 05/06/20 Rivaroxaban [Xarelto] 20 mg PO QPM 05/06/20 Duloxetine HCl [Cymbalta 30 mg Capsule.dr] 30 mg PO Q12 capsule. 05/08/20 Melatonin [Melatonin 5 mg Tablet] 10 mg PO QHS tablet 05/08/20 Mirtazapine [Remeron 15 mg Tablet] 7.5 mg PO QHS tablet 05/08/20 Spironolactone [Aldactone 25 mg Tablet] 25 mg PO DAILY tablet 05/08/20 Oxycodone HCl [Oxy-Ir 5 mg Tablet] 5 mg PO Q6HP PRN 05/13/20 Furosemide [Lasix 20 mg Tablet] 40 mg PO QAM #0 05/16/20 Lactulose [Cephulac Syrup 20 gm/30 ml Udcup] 20 gm PO QID #0 05/16/20 Lactulose [Cephulac Syrup 20 gm/30 ml Udcup] 30 gm PO Q6 udc 05/16/20 Ondansetron [Zofran Odt 4 mg Tablet] 4 mg PO Q4HP PRN tab.rapdis 05/16/20 Oxycodone HCl [Oxy-Ir 5 mg Tablet] 5 mg PO Q6HP PRN tablet 05/16/20 Allergies/Adverse Reactions: No Known Allergies Allergy (Verified 06/24/20 19:42) Review of Systems Constitutional: ABSENT: fever(s), headache(s) Eyes: ABSENT: visual disturbances Ears: ABSENT: hearing changes Nose, Mouth, and Throat: ABSENT: mouth pain, sore throat Respiratory: ABSENT: dyspnea Gastrointestinal: PRESENT: coffee ground emesis. ABSENT: dysphagia Genitourinary: ABSENT: dysuria, hematuria Musculoskeletal: ABSENT: joint swelling Neurological: ABSENT: syncope, tremor(s), vertigo, weakness Endocrine: ABSENT: polydipsia, polyphagia, polyuria Hematologic/Lymphatic: ABSENT: easy bruising Physical Exam Vital Signs: Temp Pulse Resp BP Pulse Ox 17 123/76 100 06/24/20 21:00 06/24/20 20:00 06/24/20 20:01 Intake & Output 06/23/20 06/24/20 06/25/20 06:59 06:59 06:59 Weight 85.275 kg General appearance: PRESENT: well-developed, well-nourished Head exam: PRESENT: atraumatic, normocephalic Eye exam: PRESENT: EOMI, PERRLA. ABSENT: scleral icterus Mouth exam: PRESENT: moist, neck supple Throat exam: ABSENT: tonsillogmegaly Neck exam: ABSENT: meningismus, tenderness, thyromegaly Respiratory exam: PRESENT: symmetrical, unlabored. ABSENT: tachypnea, wheezes Cardiovascular exam: PRESENT: irregular rhythm GI/Abdominal exam: PRESENT: normal bowel sounds, soft. ABSENT: Ann's sign, rebound, rigid Extremities exam: PRESENT: +1 edema. ABSENT: joint swelling Musculoskeletal exam: PRESENT: full ROM Neurological exam: PRESENT: altered Skin exam: PRESENT: normal color. ABSENT: mottled, pallor, urticaria, vesicles Results Laboratory Results: 06/24/20 20:03 06/24/20 20:03 06/24/20 06/24/20 06/24/20 20:03 20:03 20:03 WBC 4.6 RBC 2.32 L Hgb 7.2 L Hct 21.8 L MCV 94 MCH 31.2 MCHC 33.2 RDW 17.9 H Plt Count 160 Seg Neutrophils % 63.0 Sodium 138.9 Potassium 4.8 Chloride 109 H Carbon Dioxide 22 Anion Gap 8 BUN 48 H Creatinine 1.23 Est GFR ( Amer) > 60 Glucose 116 H Calcium 9.7 Total Bilirubin 0.8 AST 31 Alkaline Phosphatase 79 Ammonia Total Protein 7.3 Albumin 3.1 L Blood Type A NEGATIVE Antibody Screen NEGATIVE 06/24/20 20:47 WBC RBC Hgb Hct MCV MCH MCHC RDW Plt Count Seg Neutrophils % Sodium Potassium Chloride Carbon Dioxide Anion Gap BUN Creatinine Est GFR ( Amer) Glucose Calcium Total Bilirubin AST Alkaline Phosphatase Ammonia 46.2 H Total Protein Albumin Blood Type Antibody Screen Assessment & Plan - Diagnosis (1) Acute hepatic encephalopathy Plan: has elevated ammonia and has obvious symptoms of encephalopathy lactulose as ordered (2) Alcoholic cirrhosis of liver Qualifiers: Qualified Code(s): K70.31 - Alcoholic cirrhosis of liver with ascites Plan: unclear what the previous work up has been will need notes from the shelter the assumption here is due to ETOH however if not done, CT scan with contrast to see if any portal vein thrombosis, also ? of whether he had ascites in the past, again a previous note indicated possible need for paracentesis if so, CT would be useful, watch for SBP, no elevated WBC however unclear what evaluation done in terms of being a transplant candidate but may need at some TIPS , although hepatic encephalopathy might be a co ntraindication check NANI, AMA, alpha 1 anti-trypsin, ceruloplasmin and hepatitis profile iron studies to exclude for possible hemachromatosis prudent as well (3) Chronic anemia Plan: patient does have elevated INR not sure if this is due to current use of Xarelto for his A FIb will need to discontinue this if so will need Vit K or FFP for INR to be corrected to < 1.5 prior to possible EGD patient currently had Covid 19 testing in progress unclear where his Hgb baseline is at once INR is in acceptable range and Covid 19 testing is negative will need EGD but with Propofol sedation and done in the OR consent may be an issue but hopefully with getting old records with improvement in mentation will be able to decipher what has been going on it appears that he has "ping ponging "back and forth from the shelter and ED and work up has been minimal will follow follow up H/H PPI drip may need sandostatin but based on vitals likely not actively bleeding at this point - Time Time Spent: 50 to 70 Minutes
--- NOTE | 2020-06-24 23:22 | PDOC H&P ---
History of Present Illness Admission Date/PCP: CLEM ALMEIDA MD 06/24/2020 Patient complains of: Coffee-ground vomiting, altered mental status History of Present Illness: ANURAG MASON is a 54 year old male With a past medical history of alcoholic cirrhosis, CKD, type II DM and chronic anemia who was transferred from nursing care facility after he was noted to have an episode of coffee-ground vomiting. Following this patient was observed to have altered mental status from his baseline. He was also noted to be lethargic and patient was transferred here f or further work-up and management. Patient has been admitted to this hospital multiple times in the past 2 months for hepatic encephalopathy and was discharged to SNF. No reported history of fall, head injury or fever. Due to alteration in his mentation further history was not obtainable. Past Medical History Cardiac Medical History: Reports: Atrial Fibrillation, Congestive Heart Failure, Hyperlipidema, Hypertension Endocrine Medical History: Reports: Diabetes Mellitus Type 2 GI Medical History: Reports: Cirrhosis, Gastroesophageal Reflux Disease Psychiatric Medical History: Denies: Depression Hematology: Reports: Anemia Past Surgical History Past Surgical History: Reports: Other - Paracentesis Left toe amputation Social History Information Source: Transfer Record Lives with: Detention Smoking Status: Unknown if Ever Smoked Frequency of Alcohol Use: None Hx Recreational Drug Use: No Hx Prescription Drug Abuse: No - Advance Directive Resuscitation Status: Full Code Surrogate healthcare decision maker:: Patient unable to give response at this point, we will keep him full code for now Family History Family History: Other - Unable to obtain due to patient's current mental status Parental Family History Reviewed: No - Patient unable to give history due to altered mental status Children Family History Reviewed: No - Family history could not be obtained due to patient's altered mental status Sibling(s) Family History Reviewed.: No Medication/Allergy Home Medications: Allopurinol [Zyloprim 300 mg Tablet] 300 mg PO QAM 05/06/20 Fluticasone Propionate [Flonase Nasal [place] 50 Mcg/[place] 16 gm] 1 spray NASL QAM 05/06/20 Gabapentin [Neurontin 400 mg Capsule] 400 mg PO Q12 05/06/20 Magnesium Oxide [Mag-Ox 400 mg Tablet] 400 mg PO QAM 05/06/20 Metoprolol Tartrate [Lopressor 50 mg Tablet] 50 mg PO Q12 05/06/20 Multivit,Tx with Iron,Minerals [Thera-M] 1 tab PO QAM 05/06/20 Nystatin/Dexameth/Diphen [Magic Mouthwash] 5 ml PO Q6HP PRN 05/06/20 Omeprazole 20 mg PO Q6AM 05/06/20 Oxycodone HCl [Oxy-Ir 5 mg Tablet] 10 mg PO Q6HP PRN 05/06/20 Rivaroxaban [Xarelto] 20 mg PO QPM 05/06/20 Duloxetine HCl [Cymbalta 30 mg Capsule.dr] 30 mg PO Q12 capsule. 05/08/20 Melatonin [Melatonin 5 mg Tablet] 10 mg PO QHS tablet 05/08/20 Mirtazapine [Remeron 15 mg Tablet] 7.5 mg PO QHS tablet 05/08/20 Spironolactone [Aldactone 25 mg Tablet] 25 mg PO DAILY tablet 05/08/20 Oxycodone HCl [Oxy-Ir 5 mg Tablet] 5 mg PO Q6HP PRN 05/13/20 Furosemide [Lasix 20 mg Tablet] 40 mg PO QAM #0 05/16/20 Lactulose [Cephulac Syrup 20 gm/30 ml Udcup] 20 gm PO QID #0 05/16/20 Lactulose [Cephulac Syrup 20 gm/30 ml Udcup] 30 gm PO Q6 udc 05/16/20 Ondansetron [Zofran Odt 4 mg Tablet] 4 mg PO Q4HP PRN tab.rapdis 05/16/20 Oxycodone HCl [Oxy-Ir 5 mg Tablet] 5 mg PO Q6HP PRN tablet 05/16/20 Allergies/Adverse Reactions: No Known Allergies Allergy (Verified 06/24/20 19:42) Review of Systems ROS unobtainable: Due to mental status Physical Exam Vital Signs: Temp Pulse Resp BP Pulse Ox 17 123/76 100 06/24/20 21:00 06/24/20 20:00 06/24/20 20:01 Intake & Output 06/23/20 06/24/20 06/25/20 06:59 06:59 06:59 Weight 85.275 kg Additional comments: GENERAL APPEARANCE: in no acute distress. Alert and follows command not oriented to time or place HEENT: Normocephalic and atraumatic. No scleral icterus. PERRLA, EOMs are full, no conjunctival injection is noted. Oral mucosa is pink and moist NECK: Supple. No evidence of thyroid enlargement. No lymphadenopathy or tenderness. No carotid bruit. No JVD CHEST: Symmetric. Nontender to palpation. LUNGS: Breath sounds are equal and clear bilaterally. No wheezes, rhonchi, or rales. HEART: Regular rate and rhythm with normal S1 and S2. No murmurs, gallops, or rubs. ABDOMEN: Soft, flat, and benign. Has mild tenderness at epigastric area, no mass, guarding, rigidity or rebound. No organomegaly. Bowel sounds are present. No CVA tenderness EXTREMITIES: No cyanosis, clubbing, or edema. MUSCULOSKELETAL: No deformity, atrophy or swelling noted PSYCHIATRIC: Unable to assess due to altered mentation SKIN: Warm, dry, and well perfused. Both lower extremities are covered with elastic bandage but no sign of edema NEUROLOGIC: No focal sensory or motor deficits are noted. Cranial nerves II through XII are intact. Deep tendon reflexes are intact. Has no asterixis Results Laboratory Results: 06/24/20 20:03 06/24/20 20:03 06/24/20 06/24/20 06/24/20 20:03 20:03 20:03 WBC 4.6 RBC 2.32 L Hgb 7.2 L Hct 21.8 L MCV 94 MCH 31.2 MCHC 33.2 RDW 17.9 H Plt Count 160 Seg Neutrophils % 63.0 Sodium 138.9 Potassium 4.8 Chloride 109 H Carbon Dioxide 22 Anion Gap 8 BUN 48 H Creatinine 1.23 Est GFR ( Amer) > 60 Glucose 116 H Calcium 9.7 Total Bilirubin 0.8 AST 31 Alkaline Phosphatase 79 Ammonia Total Protein 7.3 Albumin 3.1 L Blood Type A NEGATIVE Antibody Screen NEGATIVE 06/24/20 20:47 WBC RBC Hgb Hct MCV MCH MCHC RDW Plt Count Seg Neutrophils % Sodium Potassium Chloride Carbon Dioxide Anion Gap BUN Creatinine Est GFR ( Amer) Glucose Calcium Total Bilirubin AST Alkaline Phosphatase Ammonia 46.2 H Total Protein Albumin Blood Type Antibody Screen Assessment and Plan - Diagnosis (1) Upper GI bleed Is this a current diagnosis for this admission?: Yes Plan: Patient reportedly had one episode of coffee-ground vomiting while at the long-term Currently patient is hemodynamically stable H&H on presentation 7.2 and 21.8 from a baseline hemoglobin of 7.8 in May 2020 Has elevated BUN/creatinine ratio consistent with possible GI bleed Coffee-ground nature of vomitus/hematemesis makes variceal bleeding less likely Will do type & screen and transfuse him with 1 unit of packed RBC and monitor serial H&H Obtain to large bore IV access Started him on IV PPI, octreotide Also started on prophylactic antibiotic with ceftriaxone 1 g every 24 hourly GI (Dr Lynn) has been consulted and planning to scope after correcting INR and obtaining a negative COVID-19test (2) Acute hepatic encephalopathy Is this a current diagnosis for this admission?: Yes Plan: Patient oriented to self only and per long-term report, mentation is worse than his baseline Could likely be precipitated by upper GI bleed Ammonia level was elevated at 46 Will continue to manage him with lactulose (3) Elevated INR Is this a current diagnosis for this admission?: Yes Plan: Patient was on Xarelto previously likely for A. fib but not on latest medication list from the long-term Likely due to liver failure Will transfuse with FFP and give vitamin K to correct INR preprocedure <1.6 per GI recommendation Continue to monitor coag panel (4) Thrombocytopenia Is this a current diagnosis for this admission?: Yes Plan: Platelet count on this admission 116 K, likely due to splenic sequestration from cirrhosis Continue to monitor CBC (5) Alcoholic cirrhosis of liver Qualifiers: Ascites presence: unspecified Qualified Code(s): K70.30 - Alcoholic cirrhosis of liver without ascites Is this a current diagnosis for this admission?: Yes Plan: Patient has child Barros class B with score of 8 Meld score of 16 with estimated 3-month mortality of 6% and may need referral to tip puncher on discharge Hold Lasix and spironolactone for now due to risk of hypotension from GI bleed (6) Chronic anemia Is this a current diagnosis for this admission?: Yes (7) Acute kidney injury Is this a current diagnosis for this admission?: Yes Plan: BUN/creatinine on this admission was 48/1.23 from a baseline creatinine of around 0.92 months back Elevated BUN/creatinine ratio could indicate likely prerenal cause versus upper GI bleed Continue IV hydration with LR, avoid nephrotoxic's, renally dose medications Continue to monitor renal indicis - Plan Summary Summary: please See plan of care as stated above - Time Time Spent with patient: 35 or more minutes Total Critical Time (Minutes): 50 Medications reviewed and adjusted accordingly: Yes Anticipated Discharge Disposition: Longterm Facility Anticipated Discharge Timeframe: within 72 hours - Inpatient Certification Based on my medical assessment, after consideration of the patient's comorbidities, presenting symptoms, or acuity I expect that the services needed warrant INPATIENT care.: Yes I certify that my determination is in accordance with my understanding of Medicare's requirements for reasonable and necessary INPATIENT services [42 CFR 412.3e].: Yes Medical Necessity: Significant Comorbidiites Make Outpatient Treatment Too Risky, Need For IV Fluids, Risk of Complication if Not Cared For in Hospital, Risk of Diagnosis Which Will Require Inpatient Eval/Care/Monitoring Post Hospital Care: D/C or Transfer Summary
[2020-06-24] MEDS ORDERED: NORMAL SALINE 500 ML with OCTREOTIDE ACETATE 500 MCG IV PRN ×2 (23:58)
[2020-06-25] MEDS ORDERED: PHYTONADIONE 5 MG TABLET PO ONE ×2 (00:10→12:00)
[2020-06-25] MEDS ORDERED: CEFTRIAXONE 1 GM/D5W RTU 1 GM/50 ML RTUPB IV ONE (02:00)
[2020-06-25] MEDS: RINGERS SOLUTION,LACTATED 1,000 ML IV PRN ×2 (04:39→14:00)
[2020-06-25] MEDS: LACTULOSE SYRUP 20 GM/30 ML UDCUP PO SCH ×4 (06:49→22:19)
[2020-06-25 06:59] LABS: ABSOLUTE EOSINOPHILS # (AUTO) 0.2 10^3/uL (0.0-0.6); ABSOLUTE LYMPHOCYTES (AUTO) 1.1 10^3/uL (0.5-4.7); ABSOLUTE MONOCYTES (AUTO) 0.4 10^3/uL (0.1-1.4); ABSOLUTE NEUT (AUTO) 2.7 10^3/uL (1.7-8.2); BASOPHILS % (AUTO) 0.8 % (0-2); EOSINOPHILS % (AUTO) 3.6 % (0-6); HEMATOCRIT 20.5 % (37.9-51.0); LYMPHOCYTES % (AUTO) 25.7 % (13-45); MEAN CORPUSCULAR HEMOGLOBIN 31.8 pg (27.0-33.4); MEAN CORPUSCULAR HGB CONC 34.2 g/dL (32.0-36.0); MEAN CORPUSCULAR VOLUME 93 fl (80-97); MONOCYTES % (AUTO) 9.1 % (3-13); PLATELET COUNT 148 10^3/uL (150-450); RED BLOOD COUNT 2.21 10^6/uL (4.35-5.55); RED CELL DISTRIBUTION WIDTH 17.2 % (11.5-14.0); SEGMENTED NEUTROPHILS % (AUTO) 60.8 % (42-78); TOTAL CELLS COUNTED % (AUTO) 100 %; WHITE BLOOD COUNT 4.5 10^3/uL (4.0-10.5)
[2020-06-25 07:03] LABS: ALBUMIN 3.2 g/dL (3.5-5.0); ALKALINE PHOSPHATASE 81 U/L (38-126); ANION GAP 11 (5-19); ASPARTATE AMINO TRANSFERASE 28 U/L (17-59); BILIRUBIN,DIRECT 0.4 mg/dL (0.0-0.4); BILIRUBIN,TOTAL 0.9 mg/dL (0.2-1.3); BLOOD UREA NITROGEN 50 mg/dL (7-20); CALCIUM 9.5 mg/dL (8.4-10.2); CARBON DIOXIDE 20 mmol/L (22-30); CHLORIDE 110 mmol/L (98-107); GLUCOSE 112 mg/dL (75-110); POTASSIUM 4.5 mmol/L (3.6-5.0)
--- NOTE | 2020-06-25 07:51 | Progress Note ---
Provider Note Provider Note: Covid 19 testing is still pending INR is still elevated and needs correction will only be able to proceed when all of this parameters have been optimized and resulted transfuse as necessary PPI sandostatin if needed will need procedures done once all factors needing attention are complete
[2020-06-25 08:40] LABS: INTERNATIONAL RATION (INR) 1.61; PROTHROMBIN TIME 19.3 SEC (11.4-15.4)
[2020-06-25] MEDS ORDERED: OCTREOTIDE ACETATE INJ/PF 100 MCG/1 ML SDV IV ONE (09:00)
[2020-06-25] MEDS: PANTOPRAZOLE SODIUM 40 MG VIAL IV SCH ×2 (09:28→22:20)
[2020-06-25] MEDS: NORMAL SALINE 500 ML with OCTREOTIDE ACETATE 500 MCG IV PRN ×4 (09:36→20:21)
--- NOTE | 2020-06-25 18:08 | PDOC PROGRESS REPORT ---
Subjective Progress Note for:: 06/25/20 Subjective:: Patient is seen resting in bed. He is awake but remains altered. His only complaint to me is that he feels as though he has to have a bowel movement. Otherwise unable to obtain appropriate ROS as pt is altered. Discussed case wit pt's nurse. Pt's nurse states that pt has significantly improved in overall appearance over course of day, though he remains altered. Sh e denies episodes of emesis or pt c/o nausea. Per nurse pt has states need to pass BM multiple times, but has not yet passed BM. He is on clear liquid diet with COVID pending. No other complaints or concerns at this time. Reason For Visit: HEPATIC ENCEPHALOPATHY, UPPER GI BLEEDING Physical Exam Vital Signs: Temp Pulse Resp BP Pulse Ox 97.6 F 86 16 126/69 H 100 06/25/20 15:45 06/25/20 15:45 06/25/20 15:45 06/25/20 15:45 06/25/20 15:45 Intake & Output 06/24/20 06/25/20 06/26/20 06:59 06:59 06:59 Intake Total 1489 Balance 1489 Weight 78.8 kg General appearance: PRESENT: no acute distress, thin, other - Follows commands. Head exam: PRESENT: atraumatic, normocephalic Eye exam: PRESENT: EOMI. ABSENT: conjunctival injection, scleral icterus Mouth exam: PRESENT: moist, neck supple, tongue midline Neck exam: PRESENT: full ROM. ABSENT: JVD, lymphadenopathy, tenderness, thyromegaly Respiratory exam: PRESENT: clear to auscultation marcia, symmetrical, unlabored. ABSENT: rales, rhonchi, tachypnea, wheezes Cardiovascular exam: PRESENT: RRR, +S1, +S2. ABSENT: diastolic murmur, gallop, rubs, systolic murmur Pulses: PRESENT: normal radial pulses, normal dorsalis pedis pul GI/Abdominal exam: PRESENT: normal bowel sounds, soft, tenderness - mild epigastric region. ABSENT: distended, firm, guarding Extremities exam: PRESENT: full ROM. ABSENT: clubbing, pedal edema, tenderness Musculoskeletal exam: PRESENT: full ROM. ABSENT: deformity, dislocation, tenderness Neurological exam: PRESENT: awake, other - Follows commands. Oriented to self.. ABSENT: oriented to place, oriented to time Skin exam: PRESENT: dry, warm, other - Bandages on bilateral LE removed. Mulitple healing wounds noted bilaterally with largest on the posterior aspect of the right calf. Wound bed is pink and appears to be healing. Results Laboratory Results: 06/25/20 05:24 06/25/20 05:28 06/24/20 06/24/20 06/24/20 20:03 20:03 20:03 WBC 4.6 RBC 2.32 L Hgb 7.2 L Hct 21.8 L MCV 94 MCH 31.2 MCHC 33.2 RDW 17.9 H Plt Count 160 Seg Neutrophils % 63.0 Sodium 138.9 Potassium 4.8 Chloride 109 H Carbon Dioxide 22 Anion Gap 8 BUN 48 H Creatinine 1.23 Est GFR ( Amer) > 60 Glucose 116 H Calcium 9.7 Total Bilirubin 0.8 AST 31 Alkaline Phosphatase 79 Ammonia Total Protein 7.3 Albumin 3.1 L Blood Type A NEGATIVE Antibody Screen NEGATIVE 06/24/20 06/25/20 06/25/20 20:47 05:24 05:28 WBC 4.5 RBC 2.21 L Hgb 7.0 L Hct 20.5 L MCV 93 MCH 31.8 MCHC 34.2 RDW 17.2 H Plt Count 148 L Seg Neutrophils % 60.8 Sodium 140.7 Potassium 4.5 Chloride 110 H Carbon Dioxide 20 L Anion Gap 11 BUN 50 H Creatinine 1.10 Est GFR ( Amer) > 60 Glucose 112 H Calcium 9.5 Total Bilirubin 0.9 AST 28 Alkaline Phosphatase 81 Ammonia 46.2 H Total Protein 7.0 Albumin 3.2 L Blood Type Antibody Screen Assessment and Plan - Diagnosis (1) Upper GI bleed Is this a current diagnosis for this admission?: Yes (2) Acute hepatic encephalopathy Is this a current diagnosis for this admission?: Yes (3) Elevated INR Is this a current diagnosis for this admission?: Yes (4) Thrombocytopenia Is this a current diagnosis for this admission?: Yes (5) Alcoholic cirrhosis of liver Qualifiers: Ascites presence: unspecified Qualified Code(s): K70.30 - Alcoholic cirrhosis of liver without ascites Is this a current diagnosis for this admission?: Yes (6) Chronic anemia Is this a current diagnosis for this admission?: Yes (7) Acute kidney injury Is this a current diagnosis for this admission?: Yes - Plan Summary Summary: Upper GI bleed Per hx, single episode of coffee-ground vomiting while at the senior care Hemodynamically stable H&H 7.2 and 21.8 -> Repeat pending s/p transfusion Baseline Hgb 7.8 (May 2020) Has elevated BUN/creatinine ratio consistent with possible GI bleed vs less likely variceal bleed (Due to coffe ground nature) Type & screen, transfusing him with 1 unit of packed RBC, monitor serial H&H -> Pending at this time Two large bore IV access in place Continue IV PPI, octreotide Continue prophylactic antibiotic with ceftriaxone 1 g every 24 hourly (Given hx of ascites) GI (Dr Lynn) has been consulted and planning to scope pending COVID test Acute hepatic encephalopathy Patient oriented to self only though following directions Per nurse, pt status improving Could likely be precipitated by upper GI bleed vs Ammonia level was elevated at 46 Continue with lactulose - Titrate lactulose dose until 3 regular bowel movements daily Elevated INR Historically on Xarelto (likely for A. fib), not currently taking Likely due to liver failure Corrected to 1.61 with FFP and give vitamin K Continue to monitor coag panel Thrombocytopenia Platelet count on this admission 116 K, likely due to splenic sequestration from cirrhosis Continue to monitor CBC Alcoholic cirrhosis of liver Patient has child Barros class B with score of 8 Meld score of 16 with estimated 3-month mortality of 6% and may need referral to claims account specialist on discharge Continue to hold Lasix and spironolactone for now due to risk of hypotension from GI bleed Chronic anemia Previous labs reviewed, Hgb ranging from 10.2-5.7 over past 3 months Iron 06/24/2020 49.7, consider iron supplementation in the future Acute kidney injury BUN/creatinine on this admission was 48/1.23 from a baseline creatinine of around 0.92 months back BUN/creatinine 50/1.10 with IVF Elevated BUN/creatinine ratio could indicate likely prerenal cause versus upper GI bleed Continue IV hydration with LR, avoid nephrotoxic's, renally dose medications Continue to monitor renal indicis - Time Time Spent with patient: Less than 15 minutes Medications reviewed and adjusted accordingly: Yes Anticipated Discharge Disposition: Snf Facility Anticipated Discharge Timeframe: unable to determine at this time
[2020-06-25 20:00] LABS: APPEARANCE,URINE CLEAR; BILIRUBIN,URINE NEGATIVE (NEGATIVE); COLOR,URINE YELLOW; GLUCOSE, URINE NEGATIVE (NEGATIVE); KETONES,URINE NEGATIVE (NEGATIVE); LEUKOCYTE ESTERASE,URINE NEGATIVE (NEGATIVE); NITRITE,URINE NEGATIVE (NEGATIVE); PROTEIN,URINE NEGATIVE (NEGATIVE); URINE SPECIFIC GRAVITY 1.015; UROBILINOGEN,URINE NEGATIVE mg/dL (<2.0)
[2020-06-25 20:35] LABS: HEMATOCRIT 22.2 % (37.9-51.0); MEAN CORPUSCULAR HEMOGLOBIN 31.9 pg (27.0-33.4); MEAN CORPUSCULAR HGB CONC 35.1 g/dL (32.0-36.0); MEAN CORPUSCULAR VOLUME 91 fl (80-97); PLATELET COUNT 140 10^3/uL (150-450); RED BLOOD COUNT 2.43 10^6/uL (4.35-5.55); RED CELL DISTRIBUTION WIDTH 18.2 % (11.5-14.0); WHITE BLOOD COUNT 4.1 10^3/uL (4.0-10.5)
[2020-06-25 20:36] LABS: HEMOGLOBIN 7.8 g/dL (13.5-17.0)
[2020-06-25] MEDS ORDERED: CEFTRIAXONE 1 GM/D5W RTU 1 GM/50 ML RTUPB IV SCH (22:00)
[2020-06-25] MEDS: MELATONIN 5 MG TABLET PO SCH (22:19)
[2020-06-25] MEDS: GABAPENTIN 400 MG CAPSULE PO SCH (22:19)
[2020-06-25] MEDS: DULOXETINE HCL 30 MG CAPSULE.DR PO SCH (22:19)
[2020-06-25] MEDS: MIRTAZAPINE 15 MG TABLET PO SCH (22:19)
[2020-06-26 05:47] LABS: INTERNATIONAL RATION (INR) 1.55; PROTHROMBIN TIME 18.7 SEC (11.4-15.4)
[2020-06-26 05:49] LABS: ABSOLUTE EOSINOPHILS # (AUTO) 0.2 10^3/uL (0.0-0.6); ABSOLUTE MONOCYTES (AUTO) 0.3 10^3/uL (0.1-1.4); ABSOLUTE NEUT (AUTO) 2.3 10^3/uL (1.7-8.2); BASOPHILS % (AUTO) 0.7 % (0-2); EOSINOPHILS % (AUTO) 5.1 % (0-6); HEMATOCRIT 24.3 % (37.9-51.0); HEMOGLOBIN 8.2 g/dL (13.5-17.0); LYMPHOCYTES % (AUTO) 26.3 % (13-45); MEAN CORPUSCULAR HEMOGLOBIN 30.9 pg (27.0-33.4); MEAN CORPUSCULAR HGB CONC 33.6 g/dL (32.0-36.0); MEAN CORPUSCULAR VOLUME 92 fl (80-97); MONOCYTES % (AUTO) 7.3 % (3-13); PLATELET COUNT 143 10^3/uL (150-450); RED BLOOD COUNT 2.64 10^6/uL (4.35-5.55); RED CELL DISTRIBUTION WIDTH 18.2 % (11.5-14.0); SEGMENTED NEUTROPHILS % (AUTO) 60.6 % (42-78); TOTAL CELLS COUNTED % (AUTO) 100 %; WHITE BLOOD COUNT 3.9 10^3/uL (4.0-10.5)
[2020-06-26 06:03] LABS: ALBUMIN 3.4 g/dL (3.5-5.0); ANION GAP 14 (5-19); BLOOD UREA NITROGEN 40 mg/dL (7-20); CALCIUM 9.6 mg/dL (8.4-10.2); CARBON DIOXIDE 19 mmol/L (22-30); CHLORIDE 109 mmol/L (98-107); GLUCOSE 119 mg/dL (75-110); POTASSIUM 4.4 mmol/L (3.6-5.0)
[2020-06-26] MEDS: NORMAL SALINE 500 ML with OCTREOTIDE ACETATE 500 MCG IV PRN ×2 (06:23)
[2020-06-26] MEDS ORDERED: LIDOCAINE 2% INJ (20 MG/ML) 20 ML MDV ONE (07:10)
[2020-06-26] MEDS ORDERED: PROPOFOL INJ 200 MG/20 ML VIAL IV ONE (07:30)
[2020-06-26] MEDS: FLUTICASONE NASAL SPRAY 50 MCG/SPRY 120 SPRAY/16 GM NASL SCH (10:15)
[2020-06-26] MEDS: MAGNESIUM OXIDE 400 MG TABLET PO SCH (10:15)
[2020-06-26] MEDS: DULOXETINE HCL 30 MG CAPSULE.DR PO SCH ×2 (10:15→21:19)
[2020-06-26] MEDS: LACTULOSE SYRUP 20 GM/30 ML UDCUP PO SCH ×6 (10:15→23:45)
[2020-06-26] MEDS: ALLOPURINOL 300 MG TABLET PO SCH (10:16)
[2020-06-26] MEDS: GABAPENTIN 400 MG CAPSULE PO SCH ×2 (10:16→21:19)
[2020-06-26] MEDS: PANTOPRAZOLE SODIUM 40 MG VIAL IV SCH (10:25)
--- NOTE | 2020-06-26 13:35 | Operative Report ---
Operative Report DATE OF SURGERY: 06/26/20 Operative Report: The risks benefits and alternatives of the procedure explained to the patient in detail and informed consent is obtained.A GIF Olympus video scope was inserted into the patient's mouth and hypopharynx, the esophagus is identified intubated and insufflated, the scope was then advanced through the esophagus stomach and duodenum, retroflexion maneuver is done ,the esophagus stomach and first and second portions of the duodenum examined PREOPERATIVE DIAGNOSIS: Possible coffee-ground emesis POSTOPERATIVE DIAGNOSIS: Mild gastritis. Grade 1 esophageal varices nonbleeding. No active bleeding seen OPERATION: EGD with biopsy SURGEON: MARIA EUGENIA NAJERA ANESTHESIA: LMAC TISSUE REMOVED OR ALTERED: As noted above. COMPLICATIONS: None. ESTIMATED BLOOD LOSS: None. INTRAOPERATIVE FINDINGS: As noted above. PROCEDURE: Patient tolerated the procedure well. No immediate postprocedure complications are noted. Patient is sent back to his room in good condition. His mental status appears to be much better today and he did volunteer the information that he had an upper endoscopy that was perhaps performed by Dr. Dolan with possible banding. He can follow-up with his primary GI physician on discharge. Continue to watch H&H Transfuse as needed Sandostatin may be needed Continue PPI
--- NOTE | 2020-06-26 17:41 | PDOC PROGRESS REPORT ---
Subjective Progress Note for:: 06/26/20 Subjective:: Patient is seen resting in bed s/p EGD. He tells me that he does not know why he is here and that he feels well and is ready to go home. Discussed pt's hospital course thus far with the pt and he was engaged in the conversation and able to tell me that this has happened befor. He is significantly more alert today than yesterday. He reports one bowel movement thus far today and feels as though he has to go again. On questioning he denies CP, SOB, nausea, vomiting, diarrhea, blood in stools, or anorexia. Discussed case with pt's nurse. She states that pt had a BM in the bed side toilet but did not see the appearance before it was flushed. Otherwise the pt has been requesting to go home. Otherwise no further complaints or concerns. Reason For Visit: HEPATIC ENCEPHALOPATHY, UPPER GI BLEEDING Physical Exam Vital Signs: Temp Pulse Resp BP Pulse Ox 99 F 89 21 H 148/83 H 100 06/26/20 13:22 06/26/20 14:00 06/26/20 13:22 06/26/20 13:22 06/26/20 13:22 Intake & Output 06/25/20 06/26/20 06/27/20 06:59 06:59 06:59 Intake Total 2741 1998 Output Total 620 800 Balance 2121 1198 Weight 78.8 kg 76 kg General appearance: PRESENT: no acute distress, cooperative, well-developed, well-nourished Head exam: PRESENT: atraumatic, normocephalic Eye exam: PRESENT: EOMI, PERRLA Mouth exam: PRESENT: moist, tongue midline Neck exam: PRESENT: full ROM. ABSENT: JVD, lymphadenopathy, tenderness Respiratory exam: PRESENT: clear to auscultation marcia, symmetrical, unlabored. ABSENT: accessory muscle use, rhonchi, stridor, tachypnea, wheezes Cardiovascular exam: PRESENT: RRR, +S1, +S2. ABSENT: diastolic murmur, systolic murmur, tachycardia Pulses: PRESENT: normal radial pulses, normal dorsalis pedis pul GI/Abdominal exam: PRESENT: soft. ABSENT: distended, firm, guarding, tenderness Extremities exam: ABSENT: clubbing, pedal edema, tenderness Musculoskeletal exam: PRESENT: ambulatory, full ROM. ABSENT: deformity, dislocation Neurological exam: PRESENT: alert, awake, oriented to person, oriented to place, oriented to situation Psychiatric exam: PRESENT: appropriate affect, normal mood Skin exam: PRESENT: dry, intact, warm, other - Multiple areas of ecchymosis on bilateral upper extremities. Wound care is in the room changing wound dressings, I am able to appreciate wound on anterior aspect LLE, otherwise wounds covered. Results Laboratory Results: 06/26/20 05:20 06/26/20 05:20 06/25/20 06/25/20 06/26/20 18:50 20:26 05:20 WBC 4.1 3.9 L RBC 2.43 L 2.64 L Hgb 7.8 L 8.2 L Hct 22.2 L 24.3 L MCV 91 92 MCH 31.9 30.9 MCHC 35.1 33.6 RDW 18.2 H 18.2 H Plt Count 140 L 143 L Seg Neutrophils % 60.6 Sodium Potassium Chloride Carbon Dioxide Anion Gap BUN Creatinine Est GFR ( Amer) Glucose Calcium Ammonia Albumin Urine Color YELLOW Urine Appearance CLEAR Urine pH 6.0 Ur Specific [place] 1.015 Urine Protein NEGATIVE Urine Glucose (UA) NEGATIVE Urine Ketones NEGATIVE Urine Blood NEGATIVE Urine Nitrite NEGATIVE Ur Leukocyte Esterase NEGATIVE Urine WBC (Auto) 1 Urine RBC (Auto) 1 06/26/20 06/26/20 05:20 05:20 WBC RBC Hgb Hct MCV MCH MCHC RDW Plt Count Seg Neutrophils % Sodium 142.2 Potassium 4.4 Chloride 109 H Carbon Dioxide 19 L Anion Gap 14 BUN 40 H Creatinine 1.16 Est GFR ( Amer) > 60 Glucose 119 H Calcium 9.6 Ammonia 64.1 H Albumin 3.4 L Urine Color Urine Appearance Urine pH Ur Specific [place] Urine Protein Urine Glucose (UA) Urine Ketones Urine Blood Urine Nitrite Ur Leukocyte Esterase Urine WBC (Auto) Urine RBC (Auto) Assessment and Plan - Diagnosis (1) Esophageal varices in cirrhosis Is this a current diagnosis for this admission?: Yes (2) Gastritis determined by endoscopy Is this a current diagnosis for this admission?: Yes (3) Upper GI bleed Is this a current diagnosis for this admission?: Yes (4) Acute hepatic encephalopathy Is this a current diagnosis for this admission?: Yes (5) Elevated INR Is this a current diagnosis for this admission?: Yes (6) Thrombocytopenia Is this a current diagnosis for this admission?: Yes (7) Alcoholic cirrhosis of liver Qualifiers: Ascites presence: unspecified Qualified Code(s): K70.30 - Alcoholic cirrhosis of liver without ascites Is this a current diagnosis for this admission?: Yes (8) Chronic anemia Is this a current diagnosis for this admission?: Yes (9) Acute kidney injury Is this a current diagnosis for this admission?: Yes - Plan Summary Summary: Upper GI bleed/ Gastritis / Grade 1 Esophageal Varices Per hx, single episode of coffee-ground vomiting while at the [facility] on 06/24/2020 Hemodynamically stable entire course of hospitalization H&H 7.2 and 21.8 -> 1 unit PBRC transfused with post H&H 8.2 and 24.3 - Baseline Hgb 7.8 (May 2020) EGD completed: Mild gastritis with grade 1 esophageal varices nonbleeding. No active bleeding noted. - Discontinue IV PPI, initiate oral PPI, he will be discharge with this for chronic treatment (Gastritis) - Pt home medication Metoprolol 50mg q12 sufficient for varices prophylaxis continue - Octreotide discontinued as no active bleed noted on EGD. Continue prophylactic antibiotic with ceftriaxone 1 g every 24 hourly Acute hepatic encephalopathy Significant improvement in pt mental status. Alert, oriented to person, place and situation. This was likely secondary to elevated ammonia level Continue with lactulose 30mg, increased dose to q2 hours - Pt should be having at least 3 BM/day on dose - Pt with frequent visits to the hospital regarding elevated ammonia level, will increase home dose Elevated INR Likely due to liver failure, corrected with FFP and vitamin K Thrombocytopenia 143 today. Likely due to splenic sequestration from cirrhosis Continue to monitor CBC Alcoholic cirrhosis of liver Patient has child Barros class B with score of 8 Meld score of 16 with estimated 3-month mortality of 6% and may need referral to superintendent car construction on discharge Continue to hold Lasix and spironolactone, resume tomorrow upon discharge Chronic anemia Previous labs reviewed, Hgb ranging from 10.2-5.7 over past 3 months Iron 06/24/2020 49.7, consider iron supplementation in the future Acute kidney injury BUN/creatinine on this admission was 48/1.23 from a baseline creatinine of around 0.92 months back BUN/creatinine 50/1.10 -> 40/1.16 withIVF Elevated BUN/creatinine ratio could indicate likely prerenal cause versus upper GI bleed Continue IV hydration with LR, avoid nephrotoxic's, renally dose medications Continue to monitor renal indicis - Time Time Spent with patient: Less than 15 minutes Medications reviewed and adjusted accordingly: Yes Anticipated Discharge Disposition: Care Home Facility Anticipated Discharge Timeframe: within 24 hours
[2020-06-26] MEDS: MIRTAZAPINE 15 MG TABLET PO SCH (21:19)
[2020-06-26] MEDS: MELATONIN 5 MG TABLET PO SCH (21:19)
[2020-06-26 23:29] LABS: ANION GAP 11 (5-19); BLOOD UREA NITROGEN 32 mg/dL (7-20); CALCIUM 9.7 mg/dL (8.4-10.2); CARBON DIOXIDE 18 mmol/L (22-30); CHLORIDE 111 mmol/L (98-107); GLUCOSE 105 mg/dL (75-110); POTASSIUM 4.2 mmol/L (3.6-5.0)
[2020-06-27] MEDS: LACTULOSE SYRUP 20 GM/30 ML UDCUP PO SCH ×6 (01:15→14:25)
[2020-06-27] MEDS ORDERED: PANTOPRAZOLE SODIUM 40 MG TABLET.DR PO SCH (06:00)
[2020-06-27 06:28] LABS: ABSOLUTE EOSINOPHILS # (AUTO) 0.3 10^3/uL (0.0-0.6); ABSOLUTE LYMPHOCYTES (AUTO) 0.9 10^3/uL (0.5-4.7); ABSOLUTE MONOCYTES (AUTO) 0.4 10^3/uL (0.1-1.4); ABSOLUTE NEUT (AUTO) 2.5 10^3/uL (1.7-8.2); BASOPHILS % (AUTO) 0.8 % (0-2); EOSINOPHILS % (AUTO) 7.3 % (0-6); HEMATOCRIT 25.6 % (37.9-51.0); HEMOGLOBIN 8.8 g/dL (13.5-17.0); LYMPHOCYTES % (AUTO) 22.6 % (13-45); MEAN CORPUSCULAR HEMOGLOBIN 31.6 pg (27.0-33.4); MEAN CORPUSCULAR HGB CONC 34.3 g/dL (32.0-36.0); MEAN CORPUSCULAR VOLUME 92 fl (80-97); MONOCYTES % (AUTO) 9.1 % (3-13); PLATELET COUNT 150 10^3/uL (150-450); RED BLOOD COUNT 2.78 10^6/uL (4.35-5.55); RED CELL DISTRIBUTION WIDTH 18.3 % (11.5-14.0); SEGMENTED NEUTROPHILS % (AUTO) 60.2 % (42-78); TOTAL CELLS COUNTED % (AUTO) 100 %; WHITE BLOOD COUNT 4.1 10^3/uL (4.0-10.5)
[2020-06-27 06:40] LABS: INTERNATIONAL RATION (INR) 1.31; PROTHROMBIN TIME 16.4 SEC (11.4-15.4)
[2020-06-27 06:47] LABS: ALBUMIN 3.5 g/dL (3.5-5.0); ANION GAP 12 (5-19); BLOOD UREA NITROGEN 28 mg/dL (7-20); CALCIUM 9.7 mg/dL (8.4-10.2); CARBON DIOXIDE 18 mmol/L (22-30); CHLORIDE 113 mmol/L (98-107); GLUCOSE 182 mg/dL (75-110); POTASSIUM 3.8 mmol/L (3.6-5.0)
[2020-06-27] MEDS: MAGNESIUM OXIDE 400 MG TABLET PO SCH (09:15)
[2020-06-27] MEDS: GABAPENTIN 400 MG CAPSULE PO SCH (09:15)
[2020-06-27] MEDS: ALLOPURINOL 300 MG TABLET PO SCH (09:15)
[2020-06-27] MEDS: DULOXETINE HCL 30 MG CAPSULE.DR PO SCH (09:15)
[2020-06-27] MEDS: FLUTICASONE NASAL SPRAY 50 MCG/SPRY 120 SPRAY/16 GM NASL SCH (09:16)
[2020-06-27] MEDS ORDERED: METOPROLOL TARTRATE 50 MG TABLET PO ONE (09:30)
[2020-06-27] MEDS ORDERED: OXYCODONE HCL IR 5 MG TABLET PO PRN (11:48)
--- NOTE | 2020-06-27 12:33 | PDOC TRANSFER SUMMARY ---
Impression - Admit/DC Date/PCP Admission Date/Primary Care Provider: 06/24/20 23:21 CLEM ALMEIDA MD Discharge Date: 06/27/20 - Discharge Diagnosis (1) Esophageal varices in cirrhosis Is this a current diagnosis for this admission?: Yes (2) Gastritis determined by endoscopy Is this a current diagnosis for this admission?: Yes (3) Upper GI bleed Is this a current diagnosis for this admission?: Yes (4) Acute hepatic encephalopathy Is this a current diagnosis for this admission?: Yes (5) Elevated INR Is this a current diagnosis for this admission?: Yes (6) Thrombocytopenia Is this a current diagnosis for this admission?: Yes (7) Alcoholic cirrhosis of liver Is this a current diagnosis for this admission?: Yes (8) Chronic anemia Is this a current diagnosis for this admission?: Yes (9) Acute kidney injury Is this a current diagnosis for this admission?: Yes - Additional Information Resuscitation Status: Full Code Discharge Diet: As Tolerated Discharge Activity: Activity As Tolerated Referrals: CLEM ALMEIDA MD [Primary Care Provider] - Follow up as needed ([facility] ) Prescriptions: Spironolactone [Aldactone] 50 mg PO DAILY #30 tablet Lactulose [Cephulac Syrup 20 gm/30 ml Udcup] 30 gm PO TID #30 udc Nadolol [Corgard] 80 mg PO DAILY #30 tablet Furosemide [Lasix 20 mg Tablet] 20 mg PO QAM #30 tablet Home Medications: Allopurinol [Zyloprim 300 mg Tablet] 300 mg PO DAILY 06/25/20 Diphenhydramine HCl [Benadryl 25 mg Capsule] 25 mg PO Q8HP PRN 06/25/20 Duloxetine HCl [Cymbalta 30 mg Capsule.dr] 30 mg PO Q12 06/25/20 Ferrous Sulfate [Feosol 325 mg Tablet] 325 mg PO MEALS 06/25/20 Fluticasone Propionate [Flonase Nasal [place] 50 Mcg/[place] 16 gm] 1 spray NASL DAILY 06/25/20 Gabapentin [Neurontin 400 mg Capsule] 400 mg PO Q12 06/25/20 Magnesium Oxide [Mag-Ox 400 mg Tablet] 400 mg PO DAILY 06/25/20 Melatonin [Melatonin 5 mg Tablet] 10 mg PO QHS 06/25/20 Mirtazapine [Remeron 15 mg Tablet] 7.5 mg PO QHS 06/25/20 Multivitamin [Tab-A-Naveed (Multiple Vitamin) Tablet] 1 tab PO DAILY 06/25/20 Omeprazole 20 mg PO QAM 06/25/20 Ondansetron [Zofran Odt 4 mg Tablet] 4 mg PO Q4HP PRN 06/25/20 Oxycodone HCl [Oxy-Ir 5 mg Tablet] 5 mg PO Q6HP PRN 06/25/20 Oxycodone HCl [Oxy-Ir 5 mg Tablet] 10 mg PO Q6HP PRN 06/25/20 Polyethylene Glycol 3350 [Miralax Powder 17 gm/Packet] 1 packet PO DAILY 06/25/20 Vitamin B Complex [Vitamin B Complex Tablet] 1 tab PO DAILY 06/25/20 Furosemide [Lasix 20 mg Tablet] 20 mg PO QAM #30 tablet 06/27/20 Lactulose [Cephulac Syrup 20 gm/30 ml Udcup] 30 gm PO TID #30 udc 06/27/20 Nadolol [Corgard] 80 mg PO DAILY #30 tablet 06/27/20 Spironolactone [Aldactone] 50 mg PO DAILY #30 tablet 06/27/20 History of Present Illiness History of Present Illness: As per HPI on date of admission by Dr. Padilla: "ANURAG MASON is a 54 year old male With a past medical history of alcoholic cirrhosis, CKD, type II DM and chronic anemia who was transferred from nursing care facility after he was noted to have an episode of coffee-ground vomiting. Following this patient was observed to have altered mental status from his baseline. He was also noted to be lethargic and patient was transferred here for further work-up and management. Patient has been admitted to this hospital multiple times in the past 2 months for hepatic encephalopathy and was discharged to SNF. No reported history of fall, head injury or fever. Due to alteration in his mentation further history was not obtainable." Hospital Course Hospital Course: Patient was admitted for evaluation and treatment of single episode of coffee- ground emesis as an noted at SNF. Additionally patient was found to be acutely altered. Initial evaluation in the ED patient was found to be hemodynamic dynamically stable though his hemoglobin and hematocrit were 7.2/21.8. This was treated with 1 unit of packed red blood cells with H&H 8.2 and 24.3 following. Previous labs reviewed his hemoglobin at baseline is 7.8. Additionally his INR was found to be elevated, this was treated with fresh frozen plasma and vitamin K. Patient was treated for suspected upper GI bleed IV PPI, octreotide, 2 large-bore IVs placed, and GI was consulted regarding EGD. EGD was completed noting mild gastritis with grade 1 esophageal varices nonbleeding, no active bleeding noted at time of EGD. Patient historically taking metoprolol 50 mg q. 12, for appropriate variceal treatment we have switched this to nadolol 80 mg daily. He is to continue with his home dose PPI at this time. Patient with significant history of acute hepatic encephalopathy with frequent and recurrent admissions to the hospital regarding change in mental status with elevated ammonia level. Patient was treated with lactulose 30 mg 4 times daily at home. His ammonia level was found to be elevated at 46 on admission, this resolved with frequent dosing of 30 mg lactulose, ammonia level within normal limits today. He is to continue with 30 mg lactulose 3 times daily with the goal of having a total of 3-4 bowel movements per day. Recommend holding subsequent dosing if he is exceeding 4 bowel movements per day. Patient's medications were reviewed in detail. Patient with noted slight increase in creatinine level at this time in order to prevent excessive fluid loss we are going to decrease patient 40 mg Lasix daily to 20 mg, additionally we will change 100 mg spironolactone to 50 mg spironolactone daily. Patient provides me with no concerns or complaints and is is stable for discharge back to senior care at this time. Gastritis: Continue home dose of Omeprazole. Grade 1 Esophageal Varices: Discontinue Metoprolol 50mg q12. Initiate 80mg Nadolol daily. Acute hepatic encephalopathy: Significant improvement in pt mental status. Change home dose Lactulose to 30mg TID. Goal of 3-4 bowel movements daily. Hold susbequent dosing if >4 bowel movements in one day. Alcoholic cirrhosis of liver: Decrease home dose Lasix to 20mg daily and Spironolactone to 50mg daily. Patient has child Barros class B with score of 8. Meld score of 16 with estimated 3-month mortality of 6% Acute kidney injury Improved wit hIVF. BUN/creatinine 50/1.10 -> 40/1.16 withIVF. Changes to medications as discussed above as to prevent excessive fluid loss. Physical Exam Vital Signs: Temp Pulse Resp BP Pulse Ox 98.6 F 98 24 H 133/74 H 100 06/27/20 10:00 06/27/20 07:00 06/27/20 03:46 06/27/20 03:46 06/27/20 03:46 Intake & Output 06/26/20 06/27/20 06/28/20 06:59 06:59 06:59 Intake Total 2741 2258 Output Total 620 800 Balance 2121 1458 Weight 76 kg 77.2 kg General appearance: PRESENT: no acute distress, well-developed, well-nourished Head exam: PRESENT: atraumatic, normocephalic Eye exam: PRESENT: EOMI, PERRLA Mouth exam: PRESENT: dry mucosa, tongue midline Neck exam: PRESENT: full ROM. ABSENT: JVD, tenderness Respiratory exam: PRESENT: clear to auscultation marcia, symmetrical, unlabored. ABSENT: rales, retraction, rhonchi Cardiovascular exam: PRESENT: RRR, +S1, +S2. ABSENT: diastolic murmur, gallop, rubs, systolic murmur Pulses: PRESENT: normal radial pulses, normal dorsalis pedis pul GI/Abdominal exam: PRESENT: normal bowel sounds, soft. ABSENT: distended, firm, tenderness Extremities exam: PRESENT: full ROM. ABSENT: tenderness Musculoskeletal exam: PRESENT: ambulatory, full ROM. ABSENT: deformity, dislocation Neurological exam: PRESENT: alert, awake, oriented to person, oriented to place. ABSENT: altered Psychiatric exam: PRESENT: appropriate affect, normal mood Skin exam: PRESENT: dry, intact, warm, other - wounds with dressing as applied by woundcare on bilateral lower extremities Results Laboratory Results: WBC 4.1 10^3/uL (4.0-10.5) 06/27/20 06:17 RBC 2.78 10^6/uL (4.35-5.55) L 06/27/20 06:17 Hgb 8.8 g/dL (13.5-17.0) L 06/27/20 06:17 Hct 25.6 % (37.9-51.0) L 06/27/20 06:17 MCV 92 fl (80-97) 06/27/20 06:17 MCH 31.6 pg (27.0-33.4) 06/27/20 06:17 MCHC 34.3 g/dL (32.0-36.0) 06/27/20 06:17 RDW 18.3 % (11.5-14.0) H 06/27/20 06:17 Plt Count 150 10^3/uL (150-450) 06/27/20 06:17 Lymph % (Auto) 22.6 % (13-45) 06/27/20 06:17 [place] % (Auto) 9.1 % (3-13) 06/27/20 06:17 Eos % (Auto) 7.3 % (0-6) H 06/27/20 06:17 Baso % (Auto) 0.8 % (0-2) 06/27/20 06:17 Absolute Neuts (auto) 2.5 10^3/uL (1.7-8.2) 06/27/20 06:17 Absolute Lymphs (auto) 0.9 10^3/uL (0.5-4.7) 06/27/20 06:17 Absolute Monos (auto) 0.4 10^3/uL (0.1-1.4) 06/27/20 06:17 Absolute Eos (auto) 0.3 10^3/uL (0.0-0.6) 06/27/20 06:17 Absolute Basos (auto) 0.0 10^3/uL (0.0-0.2) 06/27/20 06:17 Seg Neutrophils % 60.2 % (42-78) 06/27/20 06:17 PT 16.4 SEC (11.4-15.4) H 06/27/20 06:17 INR 1.31 06/27/20 06:17 APTT 53.8 SEC (23.5-35.8) H 06/24/20 20:03 Sodium 142.8 mmol/L (137-145) 06/27/20 06:17 Potassium 3.8 mmol/L (3.6-5.0) 06/27/20 06:17 Chloride 113 mmol/L (98-107) H 06/27/20 06:17 Carbon Dioxide 18 mmol/L (22-30) L 06/27/20 06:17 Anion Gap 12 (5-19) 06/27/20 06:17 BUN 28 mg/dL (7-20) H 06/27/20 06:17 Creatinine 1.32 mg/dL (0.52-1.25) H 06/27/20 06:17 Est GFR ( Amer) > 60 (>60) 06/27/20 06:17 Est GFR (MDRD) Non-Af 57 (>60) L 06/27/20 06:17 Glucose 182 mg/dL (75-110) H 06/27/20 06:17 POC Glucose 192 mg/dL (70-110) H 06/27/20 06:07 Calcium 9.7 mg/dL (8.4-10.2) 06/27/20 06:17 Magnesium 1.9 mg/dL (1.6-2.3) 06/26/20 22:57 Total Bilirubin 0.9 mg/dL (0.2-1.3) 06/25/20 05:28 Direct Bilirubin 0.4 mg/dL (0.0-0.4) 06/25/20 05:28 Neonat Total Bilirubin Not Reportable 06/25/20 05:28 Neonat Direct Bilirubin Not Reportable 06/25/20 05:28 Neonat Indirect Bili Not Reportable 06/25/20 05:28 AST 28 U/L (17-59) 06/25/20 05:28 ALT 13 U/L (<50) 06/25/20 05:28 Alkaline Phosphatase 81 U/L (38-126) 06/25/20 05:28 Ammonia 23.5 umol/L (9-33) 06/27/20 06:17 Troponin I < 0.012 ng/mL 06/26/20 22:57 Total Protein 7.0 g/dL (6.3-8.2) 06/25/20 05:28 Albumin 3.5 g/dL (3.5-5.0) 06/27/20 06:17 Urine Color YELLOW 06/25/20 18:50 Urine Appearance CLEAR 06/25/20 18:50 Urine pH 6.0 (5.0-9.0) 06/25/20 18:50 Ur Specific [place] 1.015 06/25/20 18:50 Urine Protein NEGATIVE mg/dL (NEGATIVE) 06/25/20 18:50 Urine Glucose (UA) NEGATIVE mg/dL (NEGATIVE) 06/25/20 18:50 Urine Ketones NEGATIVE mg/dL (NEGATIVE) 06/25/20 18:50 Urine Blood NEGATIVE (NEGATIVE) 06/25/20 18:50 Urine Nitrite NEGATIVE (NEGATIVE) 06/25/20 18:50 Urine Bilirubin NEGATIVE (NEGATIVE) 06/25/20 18:50 Urine Urobilinogen NEGATIVE mg/dL (<2.0) 06/25/20 18:50 Ur Leukocyte Esterase NEGATIVE (NEGATIVE) 06/25/20 18:50 Urine WBC (Auto) 1 /HPF 06/25/20 18:50 Urine RBC (Auto) 1 /HPF 06/25/20 18:50 Urine Mucus (Auto) RARE /LPF 06/25/20 18:50 Urine Ascorbic Acid NEGATIVE (NEGATIVE) 06/25/20 18:50 COVID-19 Source See comment 06/24/20 22:02 COVID-19 (GREGG) Not Detected (Not Detect) 06/24/20 22:02 Blood Type A NEGATIVE 06/24/20 20:03 Blood Type Confirm A NEGATIVE 06/24/20 20:03 Antibody Screen NEGATIVE 06/24/20 20:03 Crossmatch See Detail 06/24/20 20:03 06/26/20 22:57 Troponin I < 0.012 Plan Time Spent: Greater than 30 Minutes Stroke Is this a Stroke Patient?: No Acute Heart Failure Is this a Heart Failure Patient?: No
[2020-06-27 12:55] VITALS: BP 140/72
[2020-06-27] MEDS ORDERED: INFLUENZA QUAD (6MOS+) 2020-21 VAC 0.5 ML SYR IM ONE (13:00)
--- NOTE | 2020-06-27 16:13 | EKG REPORT ---
SEVERITY:- ABNORMAL ECG - SINUS TACHYCARDIA LEFT AXIS DEVIATION NONSPECIFIC REPOL ABNORMALITY, DIFFUSE LEADS BORDERLINE PROLONGED QT INTERVAL : Confirmed by: Hunter Denny MD 27-Jun-2020 16:12:27
== END 2020-06-27 16:06 | DRG 433 ==
LOC: ER 19:23 → EH 23:21 → 3W 06-25 02:32
PROVIDERS: ADMIT Student in an Organized Health Care Education/Training Program; ATTEND Physician Assistant
PROC: 30233L1 Transfusion of Nonautologous Fresh Plasma into Peripheral Vein, Percutaneous Approach (ICD-10-PCS; 2020-06-25)
PROC: 30233N1 Transfusion of Nonautologous Red Blood Cells into Peripheral Vein, Percutaneous Approach (ICD-10-PCS; 2020-06-25)
PROC: 0DB78ZX Excision of Stomach, Pylorus, Via Natural or Artificial Opening Endoscopic, Diagnostic (ICD-10-PCS; principal; 2020-06-26 10:45)
PROC: 3E02340 Introduction of Influenza Vaccine into Muscle, Percutaneous Approach (ICD-10-PCS; 2020-06-27)
DX: K70.40 Alcoholic hepatic failure without coma (principal); K92.0 Hematemesis; N17.9 Acute kidney failure, unspecified; I85.10 Secondary esophageal varices without bleeding; L97.919 Non-pressure chronic ulcer of unspecified part of right lower leg with unspecified severity; L97.929 Non-pressure chronic ulcer of unspecified part of left lower leg with unspecified severity; K70.30 Alcoholic cirrhosis of liver without ascites; I11.0 Hypertensive heart disease with heart failure; D64.9 Anemia, unspecified; E11.9 Type 2 diabetes mellitus without complications; I87.2 Venous insufficiency (chronic) (peripheral); I50.9 Heart failure, unspecified; I48.91 Unspecified atrial fibrillation; K21.9 Gastro-esophageal reflux disease without esophagitis; Z79.01 Long term (current) use of anticoagulants; D69.6 Thrombocytopenia, unspecified; Z20.828 Contact with and (suspected) exposure to other viral communicable diseases; Z89.422 Acquired absence of other left toe(s); K29.70 Gastritis, unspecified, without bleeding; Z79.899 Other long term (current) drug therapy; Z23 Encounter for immunization
CPT/HCPCS: 36415; 36430; 43239; 731; 80048; 80053; 81001; 82040; 82140; 82962; 83735; 84484; 85025; 85610; 85730; 86850; 86900; 86901; 86920; 87040; 87070; 87635; 88305; 90471; 90686; 93005; 93010; 96374; 99285; C9113; C9803; G0008; J0696; J2354; J2704; J3490; J7040; J7050; J7120; P9016; P9017

== ENCOUNTER → 2020-08-05 | Outpatient (CLI) | payer MEDICAID ==
[2020-08-05 17:03] VITALS: BP 99/51
== END ==
LOC: ASU 12:22
PROVIDERS: ATTEND Family Medicine
DX: D69.6 Thrombocytopenia, unspecified (principal); D63.8 Anemia in other chronic diseases classified elsewhere; K72.90 Hepatic failure, unspecified without coma; E11.22 Type 2 diabetes mellitus with diabetic chronic kidney disease; N18.9 Chronic kidney disease, unspecified; K70.31 Alcoholic cirrhosis of liver with ascites
CPT/HCPCS: 86900; 86901; 36415; 36430; 86850; 86920; P9016; 96365; 96366